=== PATIENT | male | born 1950 | race Caucasian/White ===

== ENCOUNTER → 2016-12-15 | Outpatient (CLI) | payer MEDICARE, OTHER ==
--- NOTE | 2016-12-15 14:58 | REP ---
Clinical: Cough. Comparison: None. Technique: PA and lateral. Findings: Mediastinum and cardiac silhouette are normal. Lung dominguez demonstrate chronic-appearing changes. No obvious acute consolidation, effusion, or pneumothorax. Skeletal structures demonstrate age-related osteopenia and degenerative change. Impression: Chronic-appearing changes. No obvious acute cardiopulmonary process. If the patient remains symptomatic consider chest CT for further investigation. Signed by Fredy Alex MD 12/15/2016 11:00 A
== END ==
LOC: M WUC 10:46
PROVIDERS: ATTEND Nurse Practitioner Family
DX: R05 Cough (principal)

== ENCOUNTER → 2018-01-30 | Outpatient (REF) | payer MEDICARE, OTHER ==
[2018-01-30 13:04] LABS: TESTOSTERONE 386 NG/DL (241-827)
== END ==
LOC: M LAB REF 12:28
DX: R68.82 Decreased libido (principal)
CPT/HCPCS: 84403

== ENCOUNTER → 2018-08-30 | Outpatient (CLI) | payer MEDICARE, OTHER | LOC: M WUC 15:10 | DX: M85.88 Other specified disorders of bone density and structure, other site (principal); R06.02 Shortness of breath; R05 Cough | CPT/HCPCS: 71046 ==

== ENCOUNTER → 2018-10-20 | Outpatient (CLI) | payer MEDICARE, OTHER ==
[~2018-10-20] MED LIST: AZEL1SPR3 NARES; CETI10TA PO; FLUTISP; LEVO50TA5 PO; MONT10TA2 PO; SYMB80INH INH; VENTAER INH
[2018-10-20 13:10] LABS: BLOOD UREA NITROGEN 27 MG/DL (7-18); CALCIUM LEVEL 8.8 MG/DL (8.8-10.2); CARBON DIOXIDE LEVEL 32 MEQ/L (21-32); CHLORIDE LEVEL 102 MEQ/L (98-107); CREATININE FOR GFR 0.99 MG/DL (0.70-1.30); GLOMERULAR FILTRATION RATE > 60.0 (>49); GLUCOSE, FASTING 77 MG/DL (70-100); POTASSIUM SERUM 4.4 MEQ/L (3.5-5.1); SODIUM LEVEL 138 MEQ/L (136-145)
== END ==
LOC: M SMT 10:02
PROVIDERS: ATTEND Nurse Practitioner Family
DX: N28.1 Cyst of kidney, acquired (principal)
CPT/HCPCS: 36415; 80048; G0463

== ENCOUNTER → 2018-10-25 | Outpatient (CLI) | payer MEDICARE, OTHER ==
[~2018-10-25] MED LIST changes: -AZEL1SPR3 NARES; -CETI10TA PO; -FLUTISP; +ISOVUE-370 76% 100ML VIAL (Q9967) As Ordered ONE; -LEVO50TA5 PO; -MONT10TA2 PO; -SYMB80INH INH; -VENTAER INH
--- NOTE | 2018-10-25 19:31 | REP ---
CT abdomen without and with IV contrast: History: Renal cyst. Comparison CT study of the chest is from September 08, 2018. Comparison sonography of the kidneys September 27, 2018. CT contrast dose: 100 ml of intravenous Isovue 370. CT findings: Preliminary linoleum floor installer radiograph is unremarkable. The lung bases are clear on axial CT images. There is no evidence of pleural effusion or upper abdominal ascites. The liver and the spleen are normal in size homogeneous in texture. No adrenal lesion is seen. Pancreas shows no abnormality. No abnormalities seen in the gallbladder. No retroperitoneal mass or adenopathy is seen. Vascular calcification is noted. There are two intrarenal calculi in the left kidney, each at the level of the cortical medullary junction. The calculus at the upper pole measures 1.0 cm in greatest diameter. There is a 3 mm calculus at the lower pole left kidney. No left-sided hydronephrosis is seen. No right-sided intrarenal calculi. Adjacent to the larger calculus in the upper pole of the left kidney posteriorly, there is a nonenhancing simple cyst 2.3 cm in greatest diameter. There is some focal cortical scarring higher up in the upper pole cortex. No abnormal enhancement is seen. No mass lesion is observed. No vascular abnormality is seen. Delayed acquisition images show no filling defect in the collecting system on either side. Impression: Simple cyst upper pole left kidney 2.3 cm in greatest diameter. Adjacent to this there is an intrarenal stone 1 cm in diameter. There is also a 0.4 cm calculus in the lower pole of the left kidney. Electronically Signed by Krunal Young MD 10/25/2018 07:35 P
== END ==
LOC: M RAD 14:51
PROVIDERS: ATTEND Nurse Practitioner Family
DX: N28.1 Cyst of kidney, acquired (principal); N20.0 Calculus of kidney
CPT/HCPCS: 74170; Q9967

== ENCOUNTER → 2018-11-10 | Outpatient (CLI) | payer MEDICARE, OTHER ==
[~2018-11-10] MED LIST changes: +AZEL1SPR3 NARES; +CETI10TA PO; +FLUTISP; -ISOVUE-370 76% 100ML VIAL (Q9967) As Ordered ONE; +LEVO50TA5 PO; +MONT10TA2 PO; +SYMB80INH INH; +VENTAER INH
[2018-11-10 14:18] LABS: HEMOGLOBIN 15.7 g/dl (13.5-17.5); MEAN CORPUSCULAR HEMOGLOBIN 30.8 pg (27.0-33.0); MEAN CORPUSCULAR HGB CONC 32.7 g/dl (32.0-36.5); MEAN CORPUSCULAR VOLUME 94.3 fl (80.0-96.0); PLATELET COUNT, AUTOMATED 257 10^3/uL (150-450); RED BLOOD COUNT 5.09 10^6/uL (4.30-6.10); WHITE BLOOD COUNT 5.9 10^3/uL (4.0-10.0)
[2018-11-10 14:37] LABS: INR 0.96; PROTHROMBIN TIME 12.9 SECONDS (12.1-14.4)
[2018-11-10 14:38] LABS: PARTIAL THROMBOPLASTIN TIME 30.6 SECONDS (25.4-37.6)
[2018-11-10 14:39] LABS: BLOOD UREA NITROGEN 25 MG/DL (7-18); CALCIUM LEVEL 9.2 MG/DL (8.8-10.2); CARBON DIOXIDE LEVEL 31 MEQ/L (21-32); CHLORIDE LEVEL 105 MEQ/L (98-107); CREATININE FOR GFR 1.05 MG/DL (0.70-1.30); GLOMERULAR FILTRATION RATE > 60.0 (>49); GLUCOSE, FASTING 100 MG/DL (70-100); POTASSIUM SERUM 4.8 MEQ/L (3.5-5.1); SODIUM LEVEL 140 MEQ/L (136-145)
== END ==
LOC: M SMT 09:40
PROVIDERS: ATTEND Nurse Practitioner Family
DX: N20.0 Calculus of kidney (principal); Z79.01 Long term (current) use of anticoagulants

== ENCOUNTER 2018-11-30 07:44 | Day surgery (SDC) | payer MEDICARE, OTHER ==
[~2018-11-30] VITALS: Ht 170.2 cm; Wt 59.6 kg
[~2018-11-30 07:44] MED LIST changes: +LORA10CA PO; +LR 1,000 ML IV ONE; +PROPOFOL 500 MG/50 ML VIAL As Ordered ONE; +VITA100066 PO
[2018-11-30] MEDS ORDERED: LIDOCAINE 2% INJ 100 MG/5 ML SDV (FOR ANES.) As Ordered ONE (07:58)
--- NOTE | 2018-11-30 08:25 | REP ---
Supine abdomen for renal calculi: Comparison is the abdomen CT of 10/25/2018. There is a calcification superimposed over the mid pole of the left kidney measuring 7 mm on plain films. This measured 1 cm on the comparison CT. On the comparison CT there was a 3 mm calculus at the lower pole left kidney. This is not visible on the plain film study today. Half There is a linear calcification measuring 10 mm length by 3 mm transversely just inferior to the L3 transverse process, possibly a left ureteral calculus. This was not present on the comparison CT. There is a calcification in the pelvis inferolaterally on the right and a calcification in the pelvis on the left. These could be phleboliths or ureteral calculi. The pelvis is not included on the comparison CT. The bowel gas pattern is normal. Skeletal structures and soft tissues are otherwise unremarkable. There is partial sacralization of L5 on the right. Electronically Signed by Colby Louise MD 11/30/2018 08:16 A
[2018-11-30 12:30] VITALS: BP 122/75
--- NOTE | 2018-12-01 09:43 | RO ---
DATE OF PROCEDURE: 11/30/2018 PREPROCEDURE DIAGNOSIS: Left kidney stone. POSTPROCEDURE DIAGNOSIS: Left kidney stone. PROCEDURE: Left extracorporeal shock wave lithotripsy. SURGEON: Catrachito Reyes MD MID LEVEL CLINICIAN: None ANESTHESIA: Monitored anesthesia care (MAC). OPERATIVE INDICATIONS: This is a 68-year-old male who was found to have approximately a 1 cm nonobstructing left kidney stone. He was brought to the operating room today. DESCRIPTION OF PROCEDURE: The patient was brought to the operating room and MAC anesthesia was administered. Prophylactic antibiotics were infused. He was then placed in the supine position in preparation first for left-sided extracorporeal shock wave lithotripsy. Fluoroscopy was utilized to monitor stone position and fragmentation throughout the procedure. Shock waves were then delivered to the left-sided kidney stone ungated. There were no arrhythmias. After 2500 shocks, the procedure was concluded. The stone appeared to fragment well. The patient was then awakened from anesthesia and transported to recovery room in stable condition. ESTIMATED BLOOD LOSS: 0 mL. COMPLICATIONS: None. SPECIMENS: None. PLAN: The patient will followup in the clinic in a few weeks with imaging prior to assess for residual stone burden. NOEL
== END 2018-11-30 12:43 | disposition home or self-care (01) ==
LOC: M SDC 07:44
PROVIDERS: ATTEND Urology
DX: N20.0 Calculus of kidney (principal); E05.90 Thyrotoxicosis, unspecified without thyrotoxic crisis or storm; J44.9 Chronic obstructive pulmonary disease, unspecified; Z87.891 Personal history of nicotine dependence; Z79.51 Long term (current) use of inhaled steroids; Z79.899 Other long term (current) drug therapy
CPT/HCPCS: 50590; 74018; J0690

== ENCOUNTER → 2018-12-26 | Outpatient (CLI) | payer MEDICARE, OTHER ==
[~2018-12-26] MED LIST changes: -LR 1,000 ML IV ONE; -PROPOFOL 500 MG/50 ML VIAL As Ordered ONE
--- NOTE | 2018-12-26 09:32 | REP ---
Supine abdomen single AP view for renal calculi: Comparison is 11/30/1929. There is a 7 mm calculus superimposed over the mid pole of the left kidney, unchanged. There is a linear calcification superimposed over the left transverse process of the L3 vertebra measuring 14 x 4 mm, similar to the comparison study. There are bilateral pelvic calcifications, also unchanged. The bowel gas pattern is normal. 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 Skeletal structures are otherwise unremarkable. Impression: No interval change. Electronically Signed by Colby Louise MD 12/26/2018 09:23 A
== END ==
LOC: M SMT 08:55
PROVIDERS: ATTEND Nurse Practitioner Family
DX: N20.0 Calculus of kidney (principal)

== ENCOUNTER → 2019-01-25 | Outpatient (REF) | payer MEDICARE, OTHER | LOC: M LAB REF 12:37 | PROVIDERS: ATTEND Internal Medicine | DX: J44.9 Chronic obstructive pulmonary disease, unspecified (principal) ==

== ENCOUNTER → 2019-06-25 | Outpatient (CLI) | payer MEDICARE, OTHER ==
--- NOTE | 2019-06-25 11:11 | REP ---
Supine abdomen for renal calculi: Comparison is 12/26/2018. There is a linear calcification projected over the L3 left transverse process, unchanged. There is a calcification projected over the upper pole of the left kidney, unchanged. There are calcifications in the pelvis bilaterally, unchanged. The bowel gas pattern is normal. The skeletal structures are unchanged. Impression: No change in the calcifications on the left. Electronically Signed by Colby Louise MD 06/25/2019 11:02 A
== END ==
LOC: M SMT 08:51
PROVIDERS: ATTEND Nurse Practitioner Family
DX: N20.0 Calculus of kidney (principal)
CPT/HCPCS: 74018; G0463

== ENCOUNTER → 2020-01-24 | Outpatient (REF) | payer MEDICARE, OTHER ==
[~2020-01-24] MED LIST changes: -MONT10TA2 PO; +MONT10TA4 PO
== END ==
LOC: M LAB REF 12:05
PROVIDERS: ATTEND Internal Medicine
DX: N52.9 Male erectile dysfunction, unspecified (principal)

== ENCOUNTER → 2021-04-22 | Outpatient (CLI) | payer MEDICARE, OTHER ==
[~2021-04-22] MED LIST changes: +CLAR10CA3 PO; +D31000TA2 PO; +MONT10TA10 PO; -MONT10TA4 PO; +SYMB16INH
== END ==
LOC: M LABSMTC 11:05
PROVIDERS: ATTEND Anesthesiology
DX: Z01.812 Encounter for preprocedural laboratory examination (principal); Z20.822 Contact with and (suspected) exposure to COVID-19

== ENCOUNTER → 2021-07-22 | Outpatient (CLI) | payer MEDICARE, OTHER | LOC: M LABSMTC 09:19 | PROVIDERS: ATTEND Anesthesiology | DX: Z11.52 Encounter for screening for COVID-19 (principal) ==

== ENCOUNTER 2021-07-27 07:02 | Day surgery (SDC) | payer MEDICARE, OTHER ==
[~2021-07-27] VITALS: Ht 170.2 cm; Wt 58.1 kg
[~2021-07-27 07:02] MED LIST changes: +NS 1,000 ML IV ONE
--- OUTSIDE RECORDS SUMMARY | 2021-07-27 07:07 | CCD | Continuity of Care Document ---
Author Author Marco SIDDIQUI MD Organization Unknown Address [address] [place] [address] Phone [phone] Care Team Providers Care Education Dean Name Role Phone Joy Haile AUTM [phone] Killian Self MD @ [facility] AUTM [phone] Problems Description No Information Available Social History Type Date Description Comments Sex Unknown Tobacco Use Start: Unknown End: Unknown Patient is a former smoker 1 pack per day x 16 years Smoking Status Reviewed: 07/21/21 Patient is a former smoker 1 pack per day x 16 years Allergies and adverse reactions Description No Known Drug Allergies Medications Active Medications SIG Qnty Indications Ordering Provide r Date Incruse Ellipta 62.5mcg/Inh Aeroso l 1 puff every day 90units Tom Siddiqui MD 07/21/2021 Prednisone 10mg Tablets 40mg po qd x 4 days then 30mg qd x 4 days then 20mg qd x 4 days then 10mg qd x 4 days and stop 40tabs Tom Siddiqui MD 07/21/2021 Cefuroxime Axetil 500mg Tablets 1 by mouth twice a day 20tabs Tom Siddiqui MD 07/21/2021 Albuterol Sulfate (2 .5mg/3ML) 0.083% Nebulizer 1 vial four times a day as needed via nebulizer 540ml Larissa uQinn, N.P. 04/22/2021 Symbicort 160-4.5mcg/Act Aerosol 2 puff twice a day 10.200gm Tom Siddiqui MD 06/25/2020 Levothyroxine Sodium 50mcg Tablets take 1 tab by mouth daily. Unknown Loratadine 10mg Tablets 1 by mouth every day Unknown Azelastine HCL (Nasal) 0.1% Soluti on 1-2 sprays each nostril every 12 hours as needed Unk nown Fluticasone Propionate 50mcg/Act Suspension 2 sprays to each nostril daily Unknown Ventolin HFA 108(90Base) mcg/Act A erosol 2 puffs qid/prn Unknown Vitamin D 1 tab by mouth every day Unknown Montelukast Sodium 10mg Tablets 1 by mouth every day Unknown History Medications Prednisone 10mg Tablets 40mg po qd x 4 days then 30mg qd x 4 days then 20mg qd x 4 days then 10mg qd x 4 days and stop 40tabs Larissa Quinn, N.P. 04/22/2021 - 021 Medications Administered in Office Medication SIG Qnty Indications Ordering Provider Date Covid-19 vaccine, Unspecified Inj ection Unknown 12/03/2020 Covid-19 vaccine, Unspecified Inj ection Unknown 10/30/2020 Immunizations Description No Information Available Vital Signs Date Vital Result Comment 07/21/2021 8:27am BP Systolic 122 mmHg BP Diastolic 78 mmHg Heart Rate 89 /min O2 % BldC Oximetry 97 % Respiratory Rate 18 /min Height 67 inches 5'7" Weight 130.00 lb BMI (Body Mass Index) 20.4 kg/m2 Superior Body Weight 148 lb Weight 58.968 kg BSA (Body Surface Area) 1.68 m2 04/22/2021 8:37am BP Systolic 124 mmHg BP Diastolic 78 mmHg Heart Rate 73 /min O2 % BldC Oximetry 97 % Room Air Height 67 inches 5'7" Weight 124.00 lb BMI (Body Mass Index) 19.4 kg/m2 Superior Body Weight 148 lb Weight 56.246 kg BSA (Body Surface Area) 1.65 m2 Results Test Acquired Date Facility Test Result H/L Range Note FVL/Alvin 07/21/2021 [facility] SEE IMAGE FVC-Pred 3.86 L FVC-Pre 1.96 L FVC-%Pred-Pre 50 L FVC-LLN 3.00 L Fev1-Pred 2.81 L Fev1-Pre 0.81 L Fev1-%Pred-Pre 28 L Fev1-LLN 2.08 L Fev6-Pred 3.62 L Fev6-Pre 1.76 L Fev6-%Pred-Pre 48 L Fev6-LLN 2.78 L Kvk0tea-Xzff 73 % Opl2jft-Skv 41 % Ybe9lhp-%Pred-Pre 56 % Sth8aax-HRQ 63 % Jtn3pve-Empz 94 % Adx1fym-Knf 90 % Vnk6ale-%Pred-Pre 95 % FEFMax-Pred 7.49 L/E/sec FEFMax-Pre 3.10 L/E/sec FEFMax-%Pred-Pre 41 L/E/sec FEFMax-LLN 5.36 L/E/sec Vuz3277-Mogp 2.10 L/E/sec Ahf1081-Kbt 0.29 L/E/sec Cvm9875-%Pred-Pre 13 L/E/sec Gav9937-RCO 0.63 L/E/sec ExpTime-Pre 7.95 sec Wic8xbe9-Fbck 77 % Vey8ows2-Pod 46 % Iim1cyt9-%Pred-Pre 59 % Xfs8fja1-BEK 68 % Procedures Date Code Description Status 04/22/2021 77493 Office/Outpatient Established Mo d MDM 30-39 Min Completed 04/22/2021 68475 Spirometry Completed Medical Devices Description No Information Available Encounters Type Date Location Provider Dx Diagnosis Office Visit 04/22/2021 8:45a [facility] Sam Quinn, N.P. J47.9 Bronchiectasis, uncomplicated J43.9 Emphysema, unspecified Z87.891 Personal history of nicotine dependence R91.8 Other nonspecific abnormal f inding of lung field Assessments Date Code Description Provider 07/21/2021 J44.9 Chronic obstructive pulmonary di sease, unspecified Tom Siddiqui MD 07/21/2021 J43.9 Emphysema, unspecified Tom Siddiqui MD 07/21/2021 J47.9 Bronchiectasis, uncomplicated La thompson Siddiqui MD 07/21/2021 R91.8 Other nonspecific abnormal findi ng of lung field Tom Siddiqui MD 07/21/2021 Z87.891 Personal history of nicotine dep endence Tom Siddiqui MD 04/22/2021 J47.9 Bronchiectasis, uncomplicated Ko lb, Larissa, N.P. 04/22/2021 J43.9 Emphysema, unspecified Cheyenne, Porsha lsea, N.P. 04/22/2021 Z87.891 Personal history of nicotine dep endence Larissa Quinn, N.P. 04/22/2021 R91.8 Other nonspecific abnormal findi ng of lung field Larissa Quinn, N.P. Plan of Treatment Future Appointment(s):* 11/20/2021 8:30 am - Tom Siddiqui MD at [facility] * 08/06/2021 9:15 am - Larissa Quinn, N.P. at [facility] 07/21/2021 - Tom Siddiqui MD* J44.9 Chronic obstructive pulmonary disease, unspecified * J43.9 Emphysema, unspecified * J47.9 Bronchiectasis, uncomplicated * R91.8 Other nonspecific abnormal finding of lung field * Z87.891 Personal history of nicotine dependence * * New Labs:* FVL/Alvin, Ordered: 07/21/21 * FVL/Alvin, Ordered: 07/21/21 * Follow up:* 2-3 weeks with fvl...recheck...me or it project lead CT Dec will call results 4 months with fvl Functional Status Description No Information Available Mental Status Description No Information Available Referrals Description No Information Available
--- OUTSIDE RECORDS SUMMARY | 2021-07-27 07:07 | CCD | Continuity of Care Document ---
Author Author Marco SIDDIQUI MD Organization Unknown Address [address] [place] [address] Phone [phone] Care Team Providers Care Endo Tech Name Role Phone Joy Haile AUTM [phone] Killian Self MD @ [facility] AUTM [phone] Problems Description No Information Available Social History [...] day as needed via nebulizer 540ml Larissa Quinn, N.P. 04/22/2021 Symbicort 160-4.5mcg/Act Aerosol 2 puff [...] qd x 4 days and stop 40tabs Larisas Quinn, N.P. 04/22/2021 - 021 Medications Administered [...] lb BMI (Body Mass Index) 20.4 kg/m2 Leonardo Body Weight 148 lb Weight 58.968 kg BSA (Body Surface Area) 1.68 m2 04/22/2021 8:37am BP Systolic 124 mmHg BP Diastolic 78 mmHg Heart Rate 73 /min O2 % BldC Oximetry 97 % Room Air Height 67 inches 5'7" Weight 124.00 lb BMI (Body Mass Index) 19.4 kg/m2 Leonardo Body Weight 148 lb Weight 56.246 kg [...] L Fev6-%Pred-Pre 48 L Fev6-LLN 2.78 L Vra4jyy-Unjh 73 % Cko4ien-Kzu 41 % Jxl0rqb-%Pred-Pre 56 % Twn5cix-ZJE 63 % Bbt4nyp-Osmz 94 % Jcy1lus-Cat 90 % Eqb3xxz-%Pred-Pre 95 % FEFMax-Pred 7.49 L/E/sec FEFMax-Pre 3.10 L/E/sec FEFMax-%Pred-Pre 41 L/E/sec FEFMax-LLN 5.36 L/E/sec Rsk3784-Gqch 2.10 L/E/sec Tom1527-Qgq 0.29 L/E/sec Swu7407-%Pred-Pre 13 L/E/sec Rbp7831-YYX 0.63 L/E/sec ExpTime-Pre 7.95 sec Tzy6llc9-Dvbu 77 % Bpm6gqs9-Qvj 46 % Pzd3rjh6-%Pred-Pre 59 % Btz7scx0-NZT 68 % Procedures Date Code Description Status 07/21/2021 03890 Office/Outpatient Established Mo d MDM 30-39 Min Completed 07/21/2021 19773 Inhaler Teaching Completed 07/21/2021 48219 Spirometry Completed 04/22/2021 90429 Office/Outpatient Established Mo d MDM 30-39 Min Completed 04/22/2021 94132 Spirometry Completed Medical Devices Description No Information Available Encounters Type Date Location Provider Dx Diagnosis Office Visit 07/21/2021 8:30a [facility] Myriam Siddiqui MD J43.9 Emphysema, unspecified J47.9 Bronchiectasis, uncomplicate d R91.8 Other nonspecific abnormal f inding of lung field Z87.891 Personal history of nicotine dependence Office Visit 04/22/2021 8:45a [facility] Sam Quinn, N.P. J47.9 Bronchiectasis, uncomplicated J43.9 Emphysema, unspecified Z87.891 Personal history of nicotine dependence R91.8 Other nonspecific abnormal f inding of lung field Assessments Date Code Description Provider 07/21/2021 J43.9 Emphysema, unspecified Tom Siddiqui MD 07/21/2021 J47.9 Bronchiectasis, uncomplicated La thompsno Siddiqui MD 07/21/2021 R91.8 Other nonspecific abnormal [...] 8:30 am - Tom Siddiqui MD at [facility] * 08/06/2021 9:15 am - Larissa Quinn, N.P. at [facility] 07/21/2021 - Tom Siddiqui MD* J43.9 Emphysema, unspecified * J47.9 Bronchiectasis, uncomplicated * R91.8 Other nonspecific abnormal finding of lung field * Z87.891 Personal history of nicotine dependence * * Comments:* ~ At this point, he clearly has an exacerbation, and will be treated with a prednisone taper, as well as some cefuroxime. It is unfortunate if this adversely affects the scheduling of his colonoscopy but, certainly, given the client's flow rates and volumes with his increased symptoms, he actually warrants intervention.~ We will also add an anticholinergic to his regimen. It appears as though Incruse is covered by his insurance. He is instructed on the use of the device, and a script was electronically sent to his pharmacy.~ He will be due for a CT scan in August, and I will make those arrangements.~ Given his change in status, I have asked him to return in several weeks for a recheck, to make sure he is r esponding nicely to interventions. Routinely he should be seen in a minimum of 4 months, and I will make arrangements for all that, including his CT scan, which we will call him the results of. He can, certainly, call sooner if problems arise in the interim. We await his return. * Follow up:* 2-3 weeks with fvl...recheck...me or snake charmer CT Aug will call results 4 months with fvl Functional Status Description No Information Available Mental Status Description No Information Available Referrals Description No Information Available
--- OUTSIDE RECORDS SUMMARY | 2021-07-27 07:08 | CCD | Continuity of Care Document ---
Author Author Nurse Marco Rodriguez Organization Unknown Address [address] [facility] [address] [place] [address] Phone [phone] Care Team Providers Care Mental Health Therapist Name Role Phone Татьяна Olivas DO AUTM Unavailable Killian Self JR, MD AUTM Unavailable [facility] AUTM [phone] Tom Siddiqui MD AUTM [phone] Galo Solo MD AUTM [phone] Problems Active Problems Provider Date Screening for malignant neoplasm of prostate Татьяна Gant D.O. Onset: 01/21/2012 Hearing loss Татьяна Olivas D.O. Onset: 2011 Social History Type Date Description Comments Sex Unknown Tobacco Use Start: Unknown End: Unknown Former Cigarette Smo ker 1 Pack Daily smoked off and on for about 10 years. He smoked 3/4 of a pack of cigarettes daily, but quit at the age of 34 ETOH Use Occasionally consumes beer Tobacco Use Start: Unknown End: Unknown Patient is a former smoker Allergies and adverse reactions Description No Known Drug Allergies Medications Active Medications SIG Qnty Indications Ordering Provide r Date Montelukast Sodium 10mg Tablets one before bedtime daily 90tabs Killian Self MD 08/30/2018 Vitamin D3 1000Unit Capsules 1 by mouth every day RIGO Diana 01/02/2018 Levothyroxine Sodium 50mcg Tablets take one tablet by mouth every day 90tabs E03.9 Killian Self MD 12/02/2016 Ventolin HFA 108(90Base) mcg/Act A erosol 2 puffs four times a day as needed 18gm J06.9 Killian collins MD 08/06/2016 Azelastine HCL (Nasal) 0.1% Soluti on spray 2 sprays in each nostril in the morning and 4 hours before bedtime 30ml Killian Self MD 12/15/2015 Fluticasone Propionate 50mcg/Act Suspension 2 sprays each nostril daily 16gm 461.9 Killian ba MD 01/30/2015 Symbicort 160-4.5mcg/Act Aerosol 2 puff twice a day Unknown Medications Administered in Office Medication SIG Qnty Indications Ordering Provider Date Covid-19 vaccine, Unspecified Inj ection Unknown 12/03/2020 Covid-19 vaccine, Unspecified Inj ection Unknown 10/30/2020 Administration Of Flu Vaccine Inj ection Killian Self MD 08/08/2019 Administration Of Flu Vaccine Inj ection Killian Self MD 08/03/2018 Administration Of Flu Vaccine Inj ection Killian Self MD 08/04/2017 Administration Of Flu Vaccine Inj ection Татьяна Olivas D.O. 07/28 Administration Of Flu Vaccine Inj ection RIGO Soares 07/10/2015 Immunizations CPT Code Status Date Vaccine Lot # U-Flu Given 07/16/2020 Influenza,Unspecified 65092 Given 08/08/2019 Influenza Vaccin e Quadrivalent Preser/Antibiotic Free Im Use [id number] 60661 Given 08/03/2018 Influenza Virus Vaccine, Quadrivalent (Cciiv4), Derived From 2 Given 08/04/2017 Influenza Vaccin e Quadrivalent Preser/Antibiotic Free Im Use [id number] Q2037 Given 07/28/2016 Fluvirin Virus Vaccine 27482 01 42270 Given 02/09/2016 Prevnar 13 Q2037 Given 07/10/2015 Fluvirin Virus Vaccine 16575 01 56512 Given 01/28/2014 Pneumovax 23 [id number] Q2037 Given 08/14/2013 Fluvirin Virus Vaccine 33636 01 Q2037 Given 08/08/2012 Fluvirin Virus Vaccine 94045 01 U-Td Refused 01/27/2021 Td(Adult)(Tetanus, Diphtheri a) unspecified Vital Signs Date Vital Result Comment 01/27/2021 7:54am BP Systolic 128 mmHg BP Diastolic 70 mmHg Heart Rate 72 /min Height 67 inches 5'7" Weight 126.25 lb O2 % BldC Oximetry 95 % RM Air BMI (Body Mass Index) 19.8 kg/m2 08/06/2020 7:55am BP Systolic 110 mmHg BP Diastolic 62 mmHg Heart Rate 68 /min Height 67 inches 5'7" Weight 126.00 lb BMI (Body Mass Index) 19.7 kg/m2 Results Test Acquired Date Facility Test Result H/L Range Note Complete Blood Count 01/26/2021 [facility] Equipment Operator/Laborer: [place] Kill[place] [address] [phone] WBC 6.8 x10*3/UL 4.1 - 10.9 RBC 4.99 x10*6/UL 4.20 - 6.30 Hemoglobin 14.8 g/dL 12.0 - 18.0 Hematocrit 44.5 % 37.0 - 51.0 MCV 89.0 fL 80.0 - 97.0 MCH 29.6 pg 26.0 - 32.0 MCHC 33.2 g/dL 31.0 - 38.0 RDW 13.5 % 11.6 - 13.7 PLT 292 x10*3/UL 140 - 440 MPV 8.3 FL 7.8 - 11.0 Lymph % 19.6 % 10.0 - 58.5 Mid % 5.8 % 1.7 - 9.3 Neut % 74.6 % 37.0 - 92.0 Lymph # 1.3 x10*3/UL 0.6 - 4.1 Mid # 0.4 x10*3/UL 0.1 - 0.6 Neut # 5.1 x10*3/UL 2.0 - 7.8 Comprehensive Chem Profile 01/26/2021 [facility] Equipment Operator/Laborer: [place] Kill[place] [address] [phone] Glucose 88 mg/dL 74 - 99 1 BUN 18 mg/dL 7 - 18 Creatinine 1.2 mg/dL 0.6 - 1.3 Sodium 141 mEq/L 136 - 145 Potassium 4.5 mEq/L 3.5 - 5.1 Chloride 103 mEq/L 98 - 107 Carbon Dioxide 32 mEq/L 21 - 32 Calcium 9.3 mg/dL 8.5 - 10.1 Alk. Phosphatase 55 mg/dL 46 - 116 Total Bilirubin 0.7 mg/dL 0.2 - 1.0 Ast (Sgot) 22 U/L 15 - 37 Alt (SGPT) 28 U/L 12 - 78 Albumin 4.0 g/dL 3.4 - 5.0 Total Protein 7.3 g/dL 6.4 - 8.2 A/G Ratio 1.21 CALC 1.00 - 1.90 GFR 60 mL/min Low >60 GFR >= 60 mL/min >60 2 Lipid Profile 01/26/2021 [facility] Equipment Operator/Laborer: [place] Kill[place] [address] [phone] Cholesterol 230 mg/dL High 131 - 200 Triglycerides 62 mg/dL 30 - 150 HDL Cholesterol 72 mg/dL High 35 - 60 LDL (Calculated) 146 CALC 50 - 159 Laboratory test finding 01/26/2021 [facility] Equipment Operator/Laborer: [place] Kill[place] [address] [phone] Thyroid Stimulating Hormone 3.30 uIU/mL 0.3 6 - 3.74 1 100-125 mg/dL PRE-DIABET ES/FASTING >126 mg/dL DIABETES/FASTING 2 CHRONIC KIDNEY DISEASE STAGI NG PER NKF STAGE I & II GFR >= 60 NORMAL TO MILDLY DECREASED STAGE III GFR 30-59 MODERATELY DECREASED STAGE IV GFR 15-29 SEVERELY DECREASED STAGE V GFR <15 VERY LITTLE GFR LEFT ESRD GFR <15 ON PACKAGING DESIGN ENGINEER Procedures Date Code Description Status 04/08/2021 10184 Chronic Care MGMT 20 Mins Clinical Staff Time Per Calendar Month Completed 02/13/2021 85348 Chronic Care MGMT 20 Mins Clinical Staff Time Per Calendar Month Completed 01/27/2021 11992 Office/Outpatient Established Mo d MDM 30-39 Min Completed 01/27/2021 70950 EKG/Interpretation & Report Comp leted 01/06/2021 57214 Chronic Care MGMT 20 Mins Clinical Staff Time Per Calendar Month Completed 04/09/2011 [id number] Colonoscopy Completed Medical Devices Description No Information Available Encounters Type Date Location Provider Dx Diagnosis Office Visit 01/27/2021 8:20a [facility] Killian Self MD E03.9 Hypothyroidism, unspecified J44.9 Chronic obstructive pulmonar y disease, unspecified J47.9 Bronchiectasis, uncomplicate d E78.00 Pure hypercholesterolemia, u nspecified N20.0 Calculus of kidney R94.31 Abnormal electrocardiogram [ ECG] [EKG] Z13.89 Encounter for screening for other disorder Assessments Date Code Description Provider 04/08/2021 E03.9 Hypothyroidism, unspecified Bonilla gerry Self MD 04/08/2021 J44.9 Chronic obstructive pulmonary di sease, unspecified Killian Self MD 04/08/2021 E78.00 Pure hypercholesterolemia, unspe cified Killian Self MD 02/13/2021 E03.9 Hypothyroidism, unspecified Bonilla gerry Self MD 02/13/2021 J44.9 Chronic obstructive pulmonary di sease, unspecified Killian Self MD 02/13/2021 E78.00 Pure hypercholesterolemia, unspe cified Killian Self MD 01/27/2021 E03.9 Hypothyroidism, unspecified Bonilla gerry Self MD 01/27/2021 J44.9 Chronic obstructive pulmonary di sease, unspecified Killian Self MD 01/27/2021 J47.9 Bronchiectasis, uncomplicated Co llgerry Self MD 01/27/2021 E78.00 Pure hypercholesterolemia, unspe cifabián Self MD 01/27/2021 N20.0 Calculus of kidney Killian ba MD 01/27/2021 R94.31 Abnormal electrocardiogram [ECG] [EKG] Killian Self MD 01/27/2021 Z13.89 Encounter for screening for othe r disorder Killian Self MD 01/26/2021 E78.00 Pure hypercholesterolemia, unspe cified Killian Self MD 01/26/2021 E78.00 Pure hypercholesterolemia, unspe cified Lab Schedule 01/26/2021 E03.9 Hypothyroidism, unspecified Bonilla gerry Self MD 01/26/2021 E03.9 Hypothyroidism, unspecified Lab Schedule 01/06/2021 E03.9 Hypothyroidism, unspecified Bonilla gerry Self MD 01/06/2021 J44.9 Chronic obstructive pulmonary di sease, unspecified Killian Self MD 01/06/2021 E78.00 Pure hypercholesterolemia, unspe cified Killian Self MD Plan of Treatment Future Appointment(s):* 08/10/2021 8:20 am - Killian Self MD at [facility] 01/25/2020 - Killian Self MD* E03.9 Hypothyroidism, unspecified * J44.9 Chronic obstructive pulmonary disease, unspecified * E78.00 Pure hypercholesterolemia, unspecified * Z13.89 Encounter for screening for other disorder Functional Status Description No Information Available Mental Status Description No Information Available Referrals Refer to Reason for Referral Status Appt Date Galo Solo MD CONSULT FOR SCREENING COLONOSCOPY Amna cagle Notified 03/26/[address] [place] [id number] [phone]
--- OUTSIDE RECORDS SUMMARY | 2021-07-27 07:08 | CCD | Continuity of Care Document ---
Author Author Nurse Marco Rodriguez Organization Unknown Address [address] [facility] [address] [place] [address] Phone [phone] Care Team Providers Care Building Maintenance Worker Name Role Phone Татьяна Olivas DO AUTM Unavailable Killian Self JR, MD AUTM Unavailable [facility] AUTM [phone] Tom Siddiqui MD AUTM [phone] Galo Solo MD AUTM [phone] Problems Active Problems Provider Date Screening for [...] Medication SIG Qnty Indications Ordering Provider Date Administration Of Flu Vaccine Inj ection Killian Self MD 07/03/2021 Covid-19 vaccine, Unspecified Inj ection Unknown 12/03/2020 Covid-19 vaccine, Unspecified Inj ection Unknown 10/30/2020 Administration Of Flu Vaccine Inj maggieion Killian Self MD 08/08/2019 Administration Of Flu Vaccine Inj ection Killian Self MD 08/03/2018 Administration Of Flu Vaccine Inj ection Killian Self MD 08/04/2017 Administration Of Flu Vaccine Inj ection Татьяна Olivas D.O. 07/28 Administration Of Flu Vaccine Inj ection RIGO Soares 07/10/2015 Immunizations CPT Code Status Date Vaccine Lot # [id number] Given 07/03/2021 Influenza Vaccin e Quadrivalent Preser/Antibiotic Free Im Use [id number] U-Flu Given 07/16/2020 Influenza,Unspecified 21168 Given 08/08/2019 Influenza Vaccin e Quadrivalent Preser/Antibiotic Free Im Use [id number] 80225 Given 08/03/2018 Influenza Virus Vaccine, Quadrivalent (Cciiv4), Derived From 4 Given 08/04/2017 Influenza Vaccin e Quadrivalent Preser/Antibiotic Free Im Use [id number] Q2037 Given 07/28/2016 Fluvirin Virus Vaccine 66562 01 02918 Given 02/09/2016 Prevnar 13 Q2037 Given 07/10/2015 Fluvirin Virus Vaccine 78887 01 38851 Given 01/28/2014 Pneumovax 23 [id number] Q2037 Given 08/14/2013 Fluvirin Virus Vaccine 61433 01 Q2037 Given 08/08/2012 Fluvirin Virus Vaccine 06738 01 U-Td Refused 01/27/2021 Td(Adult)(Tetanus, Diphtheri a) [...] H/L Range Note Complete Blood Count 01/26/2021 [facility] Drop Wire Operator: [place] [address] [phone] WBC 6.8 x10*3/UL 4.1 - 10.9 RBC [...] 2.0 - 7.8 Comprehensive Chem Profile 01/26/2021 [facility] Drop Wire Operator: [place] [address] [phone] Glucose 88 mg/dL 74 - 99 1 [...] 60 mL/min >60 2 Lipid Profile 01/26/2021 [facility] Drop Wire Operator: Dr Killian Self [place] [id number] [phone] Cholesterol 230 mg/dL High 131 - 200 Triglycerides 62 mg/dL 30 - 150 HDL Cholesterol 72 mg/dL High 35 - 60 LDL (Calculated) 146 CALC 50 - 159 Laboratory test finding 01/26/2021 [facility] Drop Wire Operator: [place] [address] [phone] Thyroid Stimulating Hormone 3.30 uIU/mL 0.3 6 - 3.74 1 100-125 mg/dL PRE-DIABET ES/FASTING >126 mg/dL DIABETES/FASTING 2 CHRONIC KIDNEY DISEASE STAGI NG PER NKF STAGE I & II GFR >= 60 NORMAL TO MILDLY DECREASED STAGE III GFR 30-59 MODERATELY DECREASED STAGE IV GFR 15-29 SEVERELY DECREASED STAGE V GFR <15 VERY LITTLE GFR LEFT ESRD GFR <15 ON MATERIALS BUYER Procedures Date Code Description Status 05/29/2021 75928 Chronic Care MGMT 20 Mins Clinical Staff Time Per Calendar Month Completed 04/08/2021 73037 Chronic Care MGMT 20 Mins Clinical Staff Time Per Calendar Month Completed 02/13/2021 33695 Chronic Care MGMT 20 Mins Clinical Staff Time Per Calendar Month Completed 01/27/2021 36276 Office/Outpatient Established Mo d MDM 30-39 Min Completed 01/27/2021 20469 EKG/Interpretation & Report Comp leted 04/09/2011 [id number] Colonoscopy Completed Medical Devices Description No Information Available Encounters Type Date Location Provider Dx Diagnosis Office Visit 01/27/2021 8:20a [facility] Killian Self MD E03.9 Hypothyroidism, unspecified J44.9 Chronic obstructive pulmonar y disease, unspecified J47.9 Bronchiectasis, uncomplicate d E78.00 Pure hypercholesterolemia, u nspecified N20.0 Calculus of kidney R94.31 Abnormal electrocardiogram [ ECG] [EKG] Z13.89 Encounter for screening for other disorder Assessments Date Code Description Provider 07/03/2021 Z23 Encounter for immunization Colli radha Self MD 07/03/2021 Z23 Encounter for immunization Nurse Schedule 05/29/2021 E03.9 Hypothyroidism, unspecified Bonilla gerry Self MD 05/29/2021 J44.9 Chronic obstructive pulmonary di sease, unspecified Killian Self MD 05/29/2021 E78.00 Pure hypercholesterolemia, unspe cified Killian Self MD 04/08/2021 E03.9 Hypothyroidism, unspecified Bonilla gerry Self MD 04/08/2021 J44.9 Chronic obstructive pulmonary di sease, unspecified Killian Self MD 04/08/2021 E78.00 Pure hypercholesterolemia, unspe cified Killian Self MD 02/13/2021 E03.9 Hypothyroidism, unspecified Bonilla gerry Self MD 02/13/2021 J44.9 Chronic obstructive pulmonary di sease, unspecified Killian Self MD 02/13/2021 E78.00 Pure hypercholesterolemia, unspe cified Klilian Self MD 01/27/2021 E03.9 Hypothyroidism, unspecified Bonilla gerry Self MD 01/27/2021 J44.9 Chronic obstructive pulmonary di sease, unspecified Killian Self MD 01/27/2021 J47.9 Bronchiectasis, uncomplicated Co llgerry Self MD 01/27/2021 E78.00 Pure hypercholesterolemia, unspe cified Killian Self MD 01/27/2021 N20.0 Calculus of kidney Killian ba MD 01/27/2021 R94.31 Abnormal electrocardiogram [ECG] [EKG] Killian Self MD 01/27/2021 Z13.89 Encounter for screening for othe r disorder Killian Self MD 01/26/2021 E78.00 Pure hypercholesterolemia, unspe cified Killian Self MD 01/26/2021 E78.00 Pure hypercholesterolemia, unspe cified Lab Schedule 01/26/2021 E03.9 Hypothyroidism, unspecified Bonilla gerry Self MD 01/26/2021 E03.9 Hypothyroidism, unspecified Lab Schedule Plan of Treatment Future Appointment(s):* 08/10/2021 8:20 am - Killian Self [facility] at [facility] 01/25/2020 - Killian Self MD* E03.9 Hypothyroidism, unspecified * J44.9 Chronic obstructive pulmonary disease, unspecified * E78.00 Pure hypercholesterolemia, unspecified * Z13.89 Encounter for screening for other disorder Functional Status Description No Information Available Mental Status Description No Information Available Referrals Refer to Dr Reason for Referral Status Appt Date Galo Solo MD CONSULT FOR SCREENING COLONOSCOPY Amna t Notified 03/26/2021 [address] [facility] [id number] [phone]
--- OUTSIDE RECORDS SUMMARY | 2021-07-27 07:08 | CCD ---
Author Author [facility] Organization [facility] Address Unknown Phone Unavailable Care Team Providers Care Clay Structure Builder And Servicer Name Role Phone Antwon Solo MD Unavailable Unavailable Antwon Solo MD Unavailable Unavailable Antwon Solo MD Unavailable Unavailable Antwon Solo MD Unavailable Unavailable Atnwon Solo MD Unavailable Unavailable Antwon Solo MD Unavailable Unavailable Antwon Solo MD Unavailable Unavailable Antwon Solo MD Unavailable Unavailable Antwon Solo MD Unavailable Unavailable Antwon Solo MD Unavailable Unavailable Antwon Solo MD Unavailable Unavailable Antwon Solo MD Unavailable Unavailable Antwon Solo MD Unavailable Unavailable Antwon Solo MD Unavailable Unavailable Antwon Solo MD Unavailable Unavailable Antwon Solo MD Unavailable Unavailable Antwon Solo MD Unavailable Unavailable Antwon Solo MD Unavailable Unavailable Antwon Solo MD Unavailable Unavailable Antwon Solo MD Unavailable Unavailable Antwon Solo MD Unavailable Unavailable Antwon Solo MD Unavailable Unavailable Antwon Solo MD Unavailable Unavailable Antwon Solo MD Unavailable Unavailable Antwon Solo MD Unavailable Unavailable Antwon Solo MD Unavailable Unavailable Antwon Solo MD Unavailable Unavailable Antwon Solo MD Unavailable Unavailable Antwon Solo MD Unavailable Unavailable Antwon Solo MD Unavailable Unavailable Antwon Solo MD Unavailable Unavailable Antwon Solo MD Unavailable Unavailable Antwon Solo MD Unavailable Unavailable Antwon Solo MD Unavailable Unavailable Antwon Solo MD Unavailable Unavailable Antwon Solo MD Unavailable Unavailable Antwon Solo MD Unavailable Unavailable Antwon Solo MD Unavailable Unavailable Antwon Solo MD Unavailable Unavailable Antwon Solo MD Unavailable Unavailable Antwon Solo MD Unavailable Unavailable Antwon Solo MD Unavailable Unavailable Antwon Solo MD Unavailable Unavailable Antwon Solo MD Unavailable Unavailable Antwon Solo MD Unavailable Unavailable Antwon Solo MD Unavailable Unavailable Antwon Solo MD Unavailable Unavailable Antwon Solo MD Unavailable Unavailable Antwon Solo MD Unavailable Unavailable Antwon Solo MD Unavailable Unavailable Jorge Self MD Unavailable Unavailable Jorge Self MD Unavailable Unavailable Jorge Self MD Unavailable Unavailable Jorge Self MD Unavailable Unavailable Jorge Self MD Unavailable Unavailable Jorge Self MD Unavailable Unavailable Jorge Self MD Unavailable Unavailable Jorge Self MD Unavailable Unavailable Jorge Self MD Unavailable Unavailable Jorge Self MD Unavailable Unavailable Jorge Self MD Unavailable Unavailable Jorge Self MD Unavailable Unavailable Jorge Self MD Unavailable Unavailable Jorge Self MD Unavailable Unavailable Jorge Self MD Unavailable Unavailable Jorge Self MD Unavailable Unavailable Jorge Self MD Unavailable Unavailable Jorge Self MD Unavailable Unavailable Jorge Self MD Unavailable Unavailable Jorge Self MD Unavailable Unavailable Jorge Self MD Unavailable Unavailable ClairJorge mcelroy MD Unavailable Unavailable ClairJorge mcelroy MD Unavailable Unavailable HarrellJorge mcelroy MD Unavailable Unavailable ClairJorge mcelroy MD Unavailable Unavailable HarrellJorge mcelroy MD Unavailable Unavailable Jorge Self MD Unavailable Unavailable HarrellJorge mcelroy MD Unavailable Unavailable ClairJorge mcelroy MD Unavailable Unavailable ClairJorge mcelroy MD Unavailable Unavailable ClairJorge mcelroy MD Unavailable Unavailable HarrellJorge mcelroy MD Unavailable Unavailable HarrellJorge MD Unavailable Unavailable ClairJorge MD Unavailable Unavailable HarrellJorge MD Unavailable Unavailable HarrellJorge MD Unavailable Unavailable ClairJorge MD Unavailable Unavailable ClairJorge MD Unavailable Unavailable HarrellJorge MD Unavailable Unavailable HarrellJorge MD Unavailable Unavailable ClairJorge MD Unavailable Unavailable HarrellJorge MD Unavailable Unavailable ClairJorge MD Unavailable Unavailable ClairJorge MD Unavailable Unavailable HarrellJorge MD Unavailable Unavailable ClairJorge MD Unavailable Unavailable HarrellJorge MD Unavailable Unavailable HarrellJorge MD Unavailable Unavailable HarrellJorge MD Unavailable Unavailable ClairJorge MD Unavailable Unavailable ClairJorge MD Unavailable Unavailable HarrellJorge MD Unavailable Unavailable ClairJorge MD Unavailable Unavailable HarrellJorge MD Unavailable Unavailable HarrellJorge MD Unavailable Unavailable ClairJorge MD Unavailable Unavailable ClairJorge MD Unavailable Unavailable ClairJorge MD Unavailable Unavailable HarrellJorge MD Unavailable Unavailable HarrellJorge MD Unavailable Unavailable ClairJorge MD Unavailable Unavailable HarrellJorge MD Unavailable Unavailable HarrellJorge MD Unavailable Unavailable HarrellJorge MD Unavailable Unavailable HarrellJorge MD Unavailable Unavailable HarrellJorge MD Unavailable Unavailable HarrellJorge mcelroy MD Unavailable Unavailable ClairJorge MD Unavailable Unavailable HarrellJorge MD Unavailable Unavailable ClairJorge MD Unavailable Unavailable HarrellJorge MD Unavailable Unavailable HarrellJorge MD Unavailable Unavailable HarrellJorge mcelroy MD Unavailable Unavailable HarrellJorge mcelroy MD Unavailable Unavailable ClairJorge mcelroy MD Unavailable Unavailable HarrellJorge MD Unavailable Unavailable ClairJorge MD Unavailable Unavailable ClairJorge MD Unavailable Unavailable ClairJorge MD Unavailable Unavailable HarrellJorge MD Unavailable Unavailable HarrellJorge MD Unavailable Unavailable HarrellJorge MD Unavailable Unavailable HarrellJorge MD Unavailable Unavailable HarrellJorge MD Unavailable Unavailable HarrellJorge MD Unavailable Unavailable ClairJorge MD Unavailable Unavailable TANIKA, ANMOL JEZ GENERAL REPAIRER-C Unavailable Unavailable TANIKA, ANMOL JEZ GENERAL REPAIRER-C Unavailable Unavailable TANIKA, ANMOL JEZ GENERAL REPAIRER-C Unavailable Unavailable TANIKA, ANMOL JEZ GENERAL REPAIRER-C Unavailable Unavailable TANIKA, ANMOL JEZ GENERAL REPAIRER-C Unavailable Unavailable TANIKA, ANMOL JEZ GENERAL REPAIRER-C Unavailable Unavailable TANIKA, ANMOL JEZ GENERAL REPAIRER-C Unavailable Unavailable TANIKA, ANMOL JEZ GENERAL REPAIRER-C Unavailable Unavailable TANIKA, ANMOL JEZ GENERAL REPAIRER-C Unavailable Unavailable TANIKA, ANMOL JEZ GENERAL REPAIRER-C Unavailable Unavailable TANIKA, ANMOL JEZ GENERAL REPAIRER-C Unavailable Unavailable TANIKA, ANMOL JEZ GENERAL REPAIRER-C Unavailable Unavailable TANIKA, ANMOL JEZ GENERAL REPAIRER-C Unavailable Unavailable TANIKA, ANMOL JEZ GENERAL REPAIRER-C Unavailable Unavailable TANIKA, ANMOL JEZ GENERAL REPAIRER-C Unavailable Unavailable TANIKA, ANMLO JEZ GENERAL REPAIRER-C Unavailable Unavailable TANIKA, ANMOL JEZ GENERAL REPAIRER-C Unavailable Unavailable Renzo Siddiqui MD Unavailable Unavailable Renzo Siddiqui MD Unavailable Unavailable Renzo Siddiqui MD Unavailable Unavailable Renzo Siddiqui MD Unavailable Unavailable Renzo Siddiqui MD Unavailable Unavailable Renzo Siddiqui MD Unavailable Unavailable Renzo Siddiqui MD Unavailable Unavailable Renzo Siddiqui MD Unavailable Unavailable Renzo Siddiqui MD Unavailable Unavailable Renzo Siddiqui MD Unavailable Unavailable Renzo Siddiqui MD Unavailable Unavailable Renzo Siddiqui MD Unavailable Unavailable Renzo Siddiqui MD Unavailable Unavailable Renzo Siddiqui MD Unavailable Unavailable Renzo Siddiqui MD Unavailable Unavailable Renzo Siddiqui MD Unavailable Unavailable Renzo Siddiqui MD Unavailable Unavailable Renzo Siddiqui MD Unavailable Unavailable Renzo Siddiqui MD Unavailable Unavailable Renzo Siddiqui MD Unavailable Unavailable Renzo Siddiqui MD Unavailable Unavailable Renzo Siddiqui MD Unavailable Unavailable Renzo Siddiqui MD Unavailable Unavailable Renzo Siddiqui MD Unavailable Unavailable Renzo Siddiqui MD Unavailable Unavailable Renzo Siddiqui MD Unavailable Unavailable Renzo Siddiqui MD Unavailable Unavailable Renzo Siddiqui MD Unavailable Unavailable Renzo Siddiqui MD Unavailable Unavailable Renzo Siddiqui MD Unavailable Unavailable Renzo Siddiqui MD Unavailable Unavailable Renzo Siddiqui MD Unavailable Unavailable Renzo Siddiqui MD Unavailable Unavailable Renzo Siddiqui MD Unavailable Unavailable Renzo Siddiqui MD Unavailable Unavailable Renzo Siddiqui MD Unavailable Unavailable Renzo Siddiqui MD Unavailable Unavailable Renzo Siddiqui MD Unavailable Unavailable Siddiqui, Renzo Tom MD Unavailable Unavailable Siddiqui, Renzo Santos MD Unavailable Unavailable Siddiqui, Renzo Santos MD Unavailable Unavailable Siddiqui, Renzo Santos MD Unavailable Unavailable Siddiqui, Renzo Santos MD Unavailable Unavailable Siddiqui, Renzo Santos MD Unavailable Unavailable Siddiqui, Renzo Santos MD Unavailable Unavailable Siddiqui, Renzo Santos MD Unavailable Unavailable Siddiqui, Renzo Santos MD Unavailable Unavailable Siddiqui, Renzo Santos MD Unavailable Unavailable Siddiqui, Renzo Santos MD Unavailable Unavailable Siddiqui, Renzo Santos MD Unavailable Unavailable Siddiqui, Renzo Santos MD Unavailable Unavailable Siddiqui, Renzo Santos MD Unavailable Unavailable Siddiqui, Renzo Santos MD Unavailable Unavailable Siddiqui, Renzo Santos MD Unavailable Unavailable Re-disclosure Warning The records that you are about to access may contain information from federally-assisted alcohol or drug abuse programs. If such information is present, then the following federally mandated warning applies: This information has been disclosed to you from records protected by federal confidentiality rules (42 CFR part 2). The federal rules prohibit you from making any further disclosure of this information unless further disclosure is expressly permitted by the written consent of the person to whom it pertains or as otherwise permitted by 42 CFR part 2. A general authorization for the release of medical or other information is NOT sufficient for this purpose. The Federal rules restrict any use of the information to criminally investigate or prosecute any alcohol or drug abuse patient.The records that you are about to access may contain highly sensitive health information, the redisclosure of which is protected by Article 27-F of the [facility] Public Health law. If you continue you may have access to information: Regarding HIV / AIDS; Provided by facilities licensed or operated by the [facility] Office of Mental Health; or Provided by the [facility] Office for People With Developmental Disabilities. If such information is present, then the following [facility] mandated warning applies: This information has been disclosed to you from confidential records which are protected by state law. State law prohibits you from making any further disclosure of this information without the specific written consent of the person to whom it pertains, or as otherwise permitted by law. Any unauthorized further disclosure in violation of state law may result in a fine or care home sentence or both. A general authorization for the release of medical or other information is NOT sufficient authorization for further disc losure. Family History Family Member Name Family Member Gender Family Member Status Date o f Status Description Data Source(s) Unknown Unknown Problem [facility] ([facility]) Encounters Encounter Providers Location Date Indications Data Source(s ) Outpatient Attender: Tom Garcia/[place]/R eindl 07/21/2021 08:30:00 AM EDT [facility] ([facility], ) Outpatient Attender: JEZ LOPEZ Radha/[place]/R eindl 04/22/2021 08:45:00 AM EDT [facility] ([facility], ) Outpatient Attender: Galo Solo MD Main Office 03/26/2021 10:30:00 AM EDT [facility] ([facility]) Outpatient Attender: Killian Altamirano 0 01/27/2021 08:20:00 AM EDT [facility] ([facility] ) Outpatient Attender: Tom Garcia/[place]/R eindl 01/02/2021 08:30:00 AM EDT [facility] ([facility], ) Outpatient Attender: Tom Garcia/[place]mber/[place]/R eindl 09/04/2020 12:30:00 PM EST [facility] ([facility], ) Outpatient Attender: Killian Altamirano 1 10/06/2019 07:00:00 AM EST [facility] ([facility] ) Outpatient Attender: Tom Garcia/[place]/R eindl 06/09/2020 09:30:00 AM EDT [facility] ([facility] ) Immunizations Vaccine Date Status Description Data Source(s) COVID-19 VACCINE Moderna 07/20/2021 12:00:00 AM EDT completed [facility] Vaccine Series Complete: YESThis Data wa s Submitted to [facility] Via [facility]. Influenza, injectable, MDCK, preservative free, adam valent 07/03/2021 08:15:00 AM EDT completed [facility] ([facility]) Note that this Td is not adsorbed. 01/27/2021 09:12:00 AM EDT compl eted MEDENT ([facility]) COVID-19 VACCINE Moderna 12/03/2020 12:00:00 AM EDT completed [facility] Vaccine Series Complete: YESThis Data wa s Submitted to [facility] Via [employer]. COVID-19 VACCINE, MRNA-1273, LNP-S (MODERNA)/PF 12/03/2020 1 2:00:00 AM EDT completed [facility] COVID-19 VACCINE Moderna 10/30/2020 12:00:00 AM EST completed [facility] Vaccine Series Complete: NOThis Data was Submitted to [facility] Via [employer]. COVID-19 VACCINE, MRNA-1273, LNP-S (MODERNA)/PF 10/30/2020 1 2:00:00 AM EST completed [facility] This CVX code allows reporting of a vacc ination when formulation is unknown (for example, when recording a Influenza vaccination when noted on a vaccination card) 07/16/2020 07:58:00 AM EDT completed GEOVANNY Willough[place] ([facility]) Medications Medication Brand Name Start Date Product Form Dose Route Admi nistrative Instructions Pharmacy Instructions Status Indications Reaction Description Data Source(s) 7 ACTUAT umeclidinium 0.0625 MG/ACTUAT Dry Powder Inha ler [Incruse] Incruse Ellipta 07/21/2021 12:00:00 AM EDT RESPIRATORY active [facility] ([facility], ) 62.5 mcg/actuation 07/21/2021 12:00:00 AM EDT blister with d evice 30 INHALE ONE PUFF BY MOUTH EVERY DAY INHALE ONE PUFF BY MOUTH EVERY DAY SOLD: 07/21/2021 [facility] Prednisone 10 MG Oral Tablet Prednisone 07/21/2021 12:00:00 AM EDT ORAL active [facility] ([facility], ) 10 mg 07/21/2021 12:00:00 AM EDT tablet 40 TAKE 4 TABLETS BY MOUTH EVERY DAY FOR 4 DAYS THEN 3 ONCE DAILY FOR 4 DAYS THEN 2 ONCE DAILY FOR 4 DAYS THEN TAKE 1 TABLET BY MOUTH EVERY DAY FOR 4 DAYS THEN STOP TAKE 4 TABLETS BY MOUTH EVERY DAY FOR 4 DAYS THEN 3 ONCE DAILY FOR 4 DAYS THEN 2 ONCE DAILY FOR 4 DAYS THEN TAKE 1 TABLET BY MOUTH EVERY DAY FOR 4 DAYS THEN STOP SOLD: 07/21/2021 [facility] Cefuroxime 500 MG Oral Tablet Cefuroxime Axetil 07/21/2021 12:00:00 A M EDT ORAL active [facility] ([facility]) 500 mg 07/21/2021 12:00:00 AM EDT tablet 20 TAKE ONE TABLET BY MOUTH TWICE A DAY TAKE ONE TABLET BY MOUTH TWICE A DAY SOLD: 07/21/2021 [facility] 100 mcg/0.5 mL 07/20/2021 12:00:00 AM EDT suspension 0 INJECT DIRECTED PER STANDING ORDER INJECT DIRECTED PER STANDING ORDER SOLD: 07/20/2021 [facility] 137 mcg (0.1 %) 07/06/2021 12:00:00 AM EDT aerosol,spray 30 2 SPRAYS EACH NOSTRIL EVERY MORNING AND 4 HOURS BEFORE AT BEDTIME 2 SPRAYS EACH NOSTRIL EVERY MORNING AND 4 HOURS BEFORE AT BEDTIME SOLD: 07/08/2021 [facility] Administration Of Flu Vaccine 07/03/2021 12:00:00 AM EDT completed [facility] ([facility]) Medication administered onsite 160-4.5 mcg/actuation 06/30/2021 12:00:00 AM EDT HFA aerosol inhaler 10 INHALE TWO PUFFS BY MOUTH TWICE A DAY INHALE TWO PUFFS BY MOUTH TWICE A DAY SOLD: 07/02/2021 [facility] 50 mcg 04/24/2021 12:00:00 AM EDT tablet 90 TAKE ONE TABLET BY MOUTH EVERY DAY TAKE ONE TABLET BY MOUTH EVERY DAY SOLD: 07/21/2021 [facility] 50 mcg 04/24/2021 12:00:00 AM EDT tablet 90 TAKE ONE TABLET BY MOUTH EVERY DAY TAKE ONE TABLET BY MOUTH EVERY DAY SOLD: 04/26/2021 [facility] Prednisone 10 MG Oral Tablet Prednisone 04/22/2021 12:00:00 AM EDT ORAL completed [facility] ([facility], ) 2.5 mg /3 mL (0.083 %) 04/22/2021 12:00:00 AM EDT solu tion for nebulization 525 USE 1 VIAL VIA NEBULIZER FOUR TIMES A DA Y NEEDED USE 1 VIAL VIA NEBULIZER FOUR TIMES A DAY NEEDED SOLD: 04/24/2021 [facility] 10 mg 04/22/2021 12:00:00 AM EDT tablet 40 TAKE FOUR TABLETS BY MOUTH EVERY DAY FOR 4 DAYS THEN 3 ONCE DAILY FOR 4 DAYS THEN 2 ONCE DAILY FOR 4 DAYS THEN 1 ONCE DAILY FOR 4 DAYS THEN STOP TAKE FOUR TABLETS BY MOUTH EVERY DAY FOR 4 DAYS THEN 3 ONCE DAILY FOR 4 DAYS THEN 2 ONCE DAILY FOR 4 DAYS THEN 1 ONCE DAILY FOR 4 DAYS THEN STOP SOLD: 04/24/2021 [facility] Albuterol 0.83 MG/ML Inhalant Solution Albuterol Sulfate 0 04/22/2021 12:00:00 AM EDT active [facility] ([facility], ) 1.479-0.188- 0.225 gram 04/03/2021 12:00:00 AM EDT tablet 24 TAKE DIRECTED BY MOUTH TAKE DIRECTED BY MOUTH SOLD: 04/04/2021 [facility] Sutab Sutab 03/26/2021 12:00:00 AM EDT active [facility] ([facility]) 50 mcg 12/29/2020 12:00:00 AM EDT tablet 30 TAKE ONE TABLET BY MOUTH EVERY DAY TAKE ONE TABLET BY MOUTH EVERY DAY SOLD: 01/27/2021 [facility] 50 mcg 12/29/2020 12:00:00 AM EDT tablet 30 TAKE ONE TABLET BY MOUTH EVERY DAY TAKE ONE TABLET BY MOUTH EVERY DAY SOLD: 03/28/2021 [facility] 50 mcg 12/29/2020 12:00:00 AM EDT tablet 30 TAKE ONE TABLET BY MOUTH EVERY DAY TAKE ONE TABLET BY MOUTH EVERY DAY SOLD: 12/29/2020 [facility] 50 mcg 12/29/2020 12:00:00 AM EDT tablet 30 TAKE ONE TABLET BY MOUTH EVERY DAY TAKE ONE TABLET BY MOUTH EVERY DAY SOLD: 02/24/2021 [facility] 160-4.5 mcg/actuation 12/25/2020 12:00:00 AM EDT HFA aerosol inhaler 10 INHALE TWO PUFFS BY MOUTH TWICE A DAY INHALE TWO PUFFS BY MOUTH TWICE A DAY SOLD: 01/27/2021 [facility] 160-4.5 mcg/actuation 12/25/2020 12:00:00 AM EDT HFA aerosol inhaler 10 INHALE TWO PUFFS BY MOUTH TWICE A DAY INHALE TWO PUFFS BY MOUTH TWICE A DAY SOLD: 03/28/2021 [facility] 160-4.5 mcg/actuation 12/25/2020 12:00:00 AM EDT HFA aerosol inhaler 10 INHALE TWO PUFFS BY MOUTH TWICE A DAY INHALE TWO PUFFS BY MOUTH TWICE A DAY SOLD: 05/30/2021 [facility] montelukast 10 MG Oral Tablet MONTELUKAST SODIUM 12/25/2020 12:0 0:00 AM EDT tablet 90 TAKE ONE TABLET BY MOUTH AT BEDT [place] TAKE ONE TABLET BY MOUTH AT BEDTIME SOLD: 04/04/2021 [facility] montelukast 10 MG Oral Tablet MONTELUKAST SODIUM 12/25/2020 12:0 0:00 AM EDT tablet 90 TAKE ONE TABLET BY MOUTH AT BEDT [place] TAKE ONE TABLET BY MOUTH AT BEDTIME SOLD: 07/08/2021 [facility] montelukast 10 MG Oral Tablet MONTELUKAST SODIUM 12/25/2020 12:0 0:00 AM EDT tablet 90 TAKE ONE TABLET BY MOUTH AT BEDT [place] TAKE ONE TABLET BY MOUTH AT BEDTIME SOLD: 12/26/2020 [facility] 160-4.5 mcg/actuation 12/25/2020 12:00:00 AM EDT HFA aerosol inhaler 10 INHALE TWO PUFFS BY MOUTH TWICE A DAY INHALE TWO PUFFS BY MOUTH TWICE A DAY SOLD: 02/24/2021 [facility] 160-4.5 mcg/actuation 12/25/2020 12:00:00 AM EDT HFA aerosol inhaler 10 INHALE TWO PUFFS BY MOUTH TWICE A DAY INHALE TWO PUFFS BY MOUTH TWICE A DAY SOLD: 12/26/2020 [facility] 160-4.5 mcg/actuation 12/25/2020 12:00:00 AM EDT HFA aerosol inhaler 10 INHALE TWO PUFFS BY MOUTH TWICE A DAY INHALE TWO PUFFS BY MOUTH TWICE A DAY SOLD: 04/28/2021 [facility] 50 mcg/actuation 12/12/2020 12:00:00 AM EDT spray,suspension 16 SPRAY TWO SPRAYS IN EACH NOSTRIL EVERY DAY SPRAY TWO SPRAYS IN EACH NOSTRIL EVERY DAY SOLD: 02/10/2021 [facility] 50 mcg/actuation 12/12/2020 12:00:00 AM EDT spray,suspension 16 SPRAY TWO SPRAYS IN EACH NOSTRIL EVERY DAY SPRAY TWO SPRAYS IN EACH NOSTRIL EVERY DAY SOLD: 12/15/2020 [facility] Fluticasone propionate 0.05 MG/ACTUAT Metered Dose Nam al Horatio 50 mcg/actuation FLUTICASONE PROPIONATE 12/12/2020 12:00:00 AM EDT spray,suspension 16 SPRAY TWO SPRAYS IN EACH NOSTRIL EVERY DAY SPRAY TWO SPRAYS IN EACH NOSTRIL EVERY DAY SOLD: 06/30/2021 [facility] 50 mcg/actuation 12/12/2020 12:00:00 AM EDT spray,suspension 16 SPRAY TWO SPRAYS IN EACH NOSTRIL EVERY DAY SPRAY TWO SPRAYS IN EACH NOSTRIL EVERY DAY SOLD: 03/28/2021 [facility] Fluticasone propionate 0.05 MG/ACTUAT Metered Dose Nam al Horatio 50 mcg/actuation FLUTICASONE PROPIONATE 12/12/2020 12:00:00 AM EDT spray,suspension 16 SPRAY TWO SPRAYS IN EACH NOSTRIL EVERY DAY SPRAY TWO SPRAYS IN EACH NOSTRIL EVERY DAY SOLD: 05/23/2021 [facility] Covid-19 vaccine, Unspecified 12/03/2020 12:00:00 AM EDT completed [facility] ([facility]) Medication administered onsite Covid-19 vaccine, Unspecified 12/03/2020 12:00:00 AM EDT completed [facility] ([facility]) Medication administered onsite Covid-19 vaccine, Unspecified 10/30/2020 12:00:00 AM EST completed [facility] ([facility]) Medication administered onsite Covid-19 vaccine, Unspecified 10/30/2020 12:00:00 AM EST completed [facility] ([facility]) Medication administered onsite 137 mcg (0.1 %) 09/23/2020 12:00:00 AM EST aerosol,spray 30 SPRAY TWO SPRAYS IN EACH NOSTRIL EVERY MORNING AND 4 HOURS BEFORE BEDTIME SPRAY TWO SPRAYS IN EACH NOSTRIL EVERY MORNING AND 4 HOURS BEFORE BEDTIME SOLD: 05/23/2021 [facility] 137 mcg (0.1 %) 09/23/2020 12:00:00 AM EST aerosol,spray 30 SPRAY TWO SPRAYS IN EACH NOSTRIL EVERY MORNING AND 4 HOURS BEFORE BEDTIME SPRAY TWO SPRAYS IN EACH NOSTRIL EVERY MORNING AND 4 HOURS BEFORE BEDTIME SOLD: 03/28/2021 [facility] 137 mcg (0.1 %) 09/23/2020 12:00:00 AM EST aerosol,spray 30 SPRAY TWO SPRAYS IN EACH NOSTRIL EVERY MORNING AND 4 HOURS BEFORE BEDTIME SPRAY TWO SPRAYS IN EACH NOSTRIL EVERY MORNING AND 4 HOURS BEFORE BEDTIME SOLD: 09/25/2020 [facility] 137 mcg (0.1 %) 09/23/2020 12:00:00 AM EST aerosol,spray 30 SPRAY TWO SPRAYS IN EACH NOSTRIL EVERY MORNING AND 4 HOURS BEFORE BEDTIME SPRAY TWO SPRAYS IN EACH NOSTRIL EVERY MORNING AND 4 HOURS BEFORE BEDTIME SOLD: 11/01/2020 [facility] 137 mcg (0.1 %) 09/23/2020 12:00:00 AM EST aerosol,spray 30 SPRAY TWO SPRAYS IN EACH NOSTRIL EVERY MORNING AND 4 HOURS BEFORE BEDTIME SPRAY TWO SPRAYS IN EACH NOSTRIL EVERY MORNING AND 4 HOURS BEFORE BEDTIME SOLD: 02/10/2021 [facility] 137 mcg (0.1 %) 09/23/2020 12:00:00 AM EST aerosol,spray 30 SPRAY TWO SPRAYS IN EACH NOSTRIL EVERY MORNING AND 4 HOURS BEFORE BEDTIME SPRAY TWO SPRAYS IN EACH NOSTRIL EVERY MORNING AND 4 HOURS BEFORE BEDTIME SOLD: 12/15/2020 [facility] 50 mcg 08/21/2020 12:00:00 AM EST tablet 30 TAKE ONE TABLET BY MOUTH EVERY DAY TAKE ONE TABLET BY MOUTH EVERY DAY SOLD: 10/24/2020 [facility] 50 mcg 08/21/2020 12:00:00 AM EST tablet 30 TAKE ONE TABLET BY MOUTH EVERY DAY TAKE ONE TABLET BY MOUTH EVERY DAY SOLD: 11/26/2020 [facility] 50 mcg 08/21/2020 12:00:00 AM EST tablet 30 TAKE ONE TABLET BY MOUTH EVERY DAY TAKE ONE TABLET BY MOUTH EVERY DAY SOLD: 08/22/2020 [facility] 50 mcg 08/21/2020 12:00:00 AM EST tablet 30 TAKE ONE TABLET BY MOUTH EVERY DAY TAKE ONE TABLET BY MOUTH EVERY DAY SOLD: 09/25/2020 [facility] montelukast 10 MG Oral Tablet MONTELUKAST SODIUM 07/14/2020 12:0 0:00 AM EDT tablet 30 TAKE ONE TABLET BY MOUTH AT BEDT [place] TAKE ONE TABLET BY MOUTH AT BEDTIME SOLD: 07/16/2020 [facility] montelukast 10 MG Oral Tablet MONTELUKAST SODIUM 07/14/2020 12:0 0:00 AM EDT tablet 30 TAKE ONE TABLET BY MOUTH AT BEDT [place] TAKE ONE TABLET BY MOUTH AT BEDTIME SOLD: 10/24/2020 [facility] montelukast 10 MG Oral Tablet MONTELUKAST SODIUM 07/14/2020 12:0 0:00 AM EDT tablet 30 TAKE ONE TABLET BY MOUTH AT BEDT [place] TAKE ONE TABLET BY MOUTH AT BEDTIME SOLD: 08/22/2020 [facility] montelukast 10 MG Oral Tablet MONTELUKAST SODIUM 07/14/2020 12:0 0:00 AM EDT tablet 30 TAKE ONE TABLET BY MOUTH AT BEDT [place] TAKE ONE TABLET BY MOUTH AT BEDTIME SOLD: 11/26/2020 [facility] montelukast 10 MG Oral Tablet MONTELUKAST SODIUM 07/14/2020 12:0 0:00 AM EDT tablet 30 TAKE ONE TABLET BY MOUTH AT BEDT [place] TAKE ONE TABLET BY MOUTH AT BEDTIME SOLD: 09/23/2020 [facility] Prednisone 10 MG Oral Tablet Prednisone 07/01/2020 12:00:00 AM EDT ORAL completed [facility] ([facility], ) 160-4.5 mcg/actuation 07/01/2020 12:00:00 AM EDT HFA aerosol inhaler 10 INHALE TWO PUFFS BY MOUTH TWICE A DAY INHALE TWO PUFFS BY MOUTH TWICE A DAY SOLD: 08/29/2020 [facility] 160-4.5 mcg/actuation 07/01/2020 12:00:00 AM EDT HFA aerosol inhaler 10 INHALE TWO PUFFS BY MOUTH TWICE A DAY INHALE TWO PUFFS BY MOUTH TWICE A DAY SOLD: 10/24/2020 [facility] 160-4.5 mcg/actuation 07/01/2020 12:00:00 AM EDT HFA aerosol inhaler 10 INHALE TWO PUFFS BY MOUTH TWICE A DAY INHALE TWO PUFFS BY MOUTH TWICE A DAY SOLD: 07/28/2020 [facility] 160-4.5 mcg/actuation 07/01/2020 12:00:00 AM EDT HFA aerosol inhaler 10 INHALE TWO PUFFS BY MOUTH TWICE A DAY INHALE TWO PUFFS BY MOUTH TWICE A DAY SOLD: 09/25/2020 [facility] 160-4.5 mcg/actuation 07/01/2020 12:00:00 AM EDT HFA aerosol inhaler 10 INHALE TWO PUFFS BY MOUTH TWICE A DAY INHALE TWO PUFFS BY MOUTH TWICE A DAY SOLD: 11/26/2020 [facility] 10 mg 07/01/2020 12:00:00 AM EDT tablet 40 TAKE 4 TABLETS BY MOUTH EVERY DAY FOR 4 DAYS, THEN 3 TABLETS DAILY FOR 4 DAYS, THEN 2 TABLETS DAILY FOR 4 DAYS, THEN 1 TABLET DAILY FOR 4 DAYS THEN STOP TAKE 4 TABLETS BY MOUTH EVERY DAY FOR 4 DAYS, THEN 3 TABLETS DAILY FOR 4 DAYS, THEN 2 TABLETS DAILY FOR 4 DAYS, THEN 1 TABLET DAILY FOR 4 DAYS THEN STOP SOLD: 07/02/2020 [facility] 160-4.5 mcg/actuation 07/01/2020 12:00:00 AM EDT HFA aerosol inhaler 10 INHALE TWO PUFFS BY MOUTH TWICE A DAY INHALE TWO PUFFS BY MOUTH TWICE A DAY SOLD: 07/02/2020 [facility] 60 ACTUAT Budesonide 0.16 MG/ACTUAT / fo rmoterol fumarate 0.0045 MG/ACTUAT Metered Dose Inhaler [Symbicort] Symbicort 06/25/2020 12:00:00 AM EDT RESPIRATORY active [facility] ( [facility], ) Prednisone 10 MG Oral Tablet Prednisone 06/09/2020 12:00:00 AM EDT ORAL completed [facility] ([facility], ) 10 mg 06/09/2020 12:00:00 AM EDT tablet 40 TAKE 4 TABLETS BY MOUTH ONCE DAILY FOR 4 DAYS THEN 3 DAILY FOR 4 DAYS THEN 2 DAILY FOR 4 DAYS THEN 1 DAILY FOR 4 DAYS AND STOP TAKE 4 TABLETS BY MOUTH ONCE DAILY FOR 4 DAYS THEN 3 DAILY FOR 4 DAYS THEN 2 DAILY FOR 4 DAYS THEN 1 DAILY FOR 4 DAYS AND STOP SOLD: 06/09/2020 [facility] 50 mcg 04/25/2020 12:00:00 AM EDT tablet 30 TAKE ONE TABLET BY MOUTH EVERY DAY TAKE ONE TABLET BY MOUTH EVERY DAY SOLD: 06/27/2020 [facility] 50 mcg 04/25/2020 12:00:00 AM EDT tablet 30 TAKE ONE TABLET BY MOUTH EVERY DAY TAKE ONE TABLET BY MOUTH EVERY DAY SOLD: 05/29/2020 [facility] 50 mcg 04/25/2020 12:00:00 AM EDT tablet 30 TAKE ONE TABLET BY MOUTH EVERY DAY TAKE ONE TABLET BY MOUTH EVERY DAY SOLD: 07/28/2020 [facility] 90 mcg/actuation 01/25/2020 12:00:00 AM EDT HFA aerosol inha ler 18 INHALE TWO PUFFS BY MOUTH FOUR TIMES A DAY NEEDED INHALE TWO PUFFS BY MOUTH FOUR TIMES A DAY NEEDED SOLD: 10/27/2020 [facility] montelukast 10 MG Oral Tablet MONTELUKAST SODIUM 01/25/2020 12:0 0:00 AM EDT tablet 30 TAKE ONE TABLET BY MOUTH AT BEDT [place] TAKE ONE TABLET BY MOUTH AT BEDTIME SOLD: 06/17/2020 [facility] 50 mcg/actuation 11/03/2019 12:00:00 AM EST spray,suspension 16 SPRAY TWO SPRAYS IN EACH NOSTRIL EVERY DAY SPRAY TWO SPRAYS IN EACH NOSTRIL EVERY DAY SOLD: 07/16/2020 [facility] 50 mcg/actuation 11/03/2019 12:00:00 AM EST spray,suspension 16 SPRAY TWO SPRAYS IN EACH NOSTRIL EVERY DAY SPRAY TWO SPRAYS IN EACH NOSTRIL EVERY DAY SOLD: 11/01/2020 [facility] 50 mcg/actuation 11/03/2019 12:00:00 AM EST spray,suspension 16 SPRAY TWO SPRAYS IN EACH NOSTRIL EVERY DAY SPRAY TWO SPRAYS IN EACH NOSTRIL EVERY DAY SOLD: 06/09/2020 [facility] 50 mcg/actuation 11/03/2019 12:00:00 AM EST spray,suspension 16 SPRAY TWO SPRAYS IN EACH NOSTRIL EVERY DAY SPRAY TWO SPRAYS IN EACH NOSTRIL EVERY DAY SOLD: 08/22/2020 [facility] 50 mcg/actuation 11/03/2019 12:00:00 AM EST spray,suspension 16 SPRAY TWO SPRAYS IN EACH NOSTRIL EVERY DAY SPRAY TWO SPRAYS IN EACH NOSTRIL EVERY DAY SOLD: 09/30/2020 [facility] 137 mcg (0.1 %) 08/28/2019 12:00:00 AM EST aerosol,spray 30 SPRAY TWO SPRAYS IN EACH NOSTRIL EVERY MORNING AND 4 HOURS BEFORE BEDTIME SPRAY TWO SPRAYS IN EACH NOSTRIL EVERY MORNING AND 4 HOURS BEFORE BEDTIME SOLD: 08/22/2020 [facility] 137 mcg (0.1 %) 08/28/2019 12:00:00 AM EST aerosol,spray 30 SPRAY TWO SPRAYS IN EACH NOSTRIL EVERY MORNING AND 4 HOURS BEFORE BEDTIME SPRAY TWO SPRAYS IN EACH NOSTRIL EVERY MORNING AND 4 HOURS BEFORE BEDTIME SOLD: 06/09/2020 [facility] Insurance Providers Payer name Policy type / Coverage type Policy ID Covered libertarian ID Covered libertarian's relationship to sanz Policy Sanz Plan Information [facility] Int Health Maintenance [facility] ([facility]) [id number] [id number] Self Z [id number] [facility] Aquaris[facility] Int Health Maintenance Organization ([facility]) [id number] Self Z [id number] [facility] Int Health Maintenance Organization ([facility]) [id number] 2800 [id number] Self Z [id number] [facility] Int Health Maintenance Organization ([facility]) [id number] 2800 [id number] Self Z [id number] [facility] Int Health Maintenance Organization ([facility]) [id number] 2800 [id number] Self Z [id number] [facility] Int Health Maintenance Organization ([facility]) [id number] 2800 [id number] Self Z [id number] [facility] Int Health Maintenance Organization ([facility]) [id number] 2800 [id number] Self Z [id number] [facility] Int Health Maintenance Organization ([facility]) [id number] [id number] [facility] Int Health Maintenance Organization ([facility]) [id number] 2800 [id number] Self Z [id number] MEDICARE [id number] SP [id number] A [facility] [id number] [place] [id number] [facility] [id number] [id number] MEDICARE [id number] SP [id number] Medicare Natl Govt Servic Medicare Primary [id number] Self 1 [id number] Medicare Natl Govt Servic Medicare Primary [id number] Self 1 [id number] Medicare Natl Govt Servic Medicare Primary [id number] [id number] Self 1 [id number] Medicare Natl Govt Servic Medicare Primary [id number] Self 1 [id number] MEDICARE [id number] SP [id number] Medicare Natl Govt Servic Medicare Primary [id number] [id number] Self 1 [id number] Medicare Natl Govt Servic Medicare Primary [id number] [id number] Self 1 [id number] Medicare Natl Govt Servic Medicare Primary [id number] Self 1 [id number] Medicare Natl Govt Servic Medicare Primary [id number] Self Medicare Natl Govt Servic Medicare Primary [id number] Self Medicare Natl Govt Servic Medicare Primary [id number] [id number] Self 1 [id number] r ([facility]) [place] [id number] Family Dependent [id number] [facility] [id number] [facility] [id number] ANSI-Commercial [id number] ANSI-Medicare Part B [id number] ANSI-Medicare Part B [id number] ANSI-Commercial [id number] ANSI-Commercial [id number] ANSI-Medicare Part B [id number] ANSI-Commercial [id number] ANSI-Medicare Part B [id number] [place] Medicare Primary [id number] [id number] Self [id number] Medicare [facility] Medicare Primary [id number] 2.16.84[id number] Self [id number] UMR O [id number] P [id number] [place] (Old) Medigap Part B [id number] 2.16.840.1.093828.3.227 .99.4595.8053.0 Family Dependent [id number] [employer] (Old) Medigap Part B [id number] 2.840.1.105895.3.227 .99.4595.8053.0 Family Dependent [id number] UMR [facility] [id number] [facility] [id number] Medicare Natl Gov't Servi Medicare Primary [id number] 2.840.1.373204.3.227.99.1767.2432.0 Self 1 [id number] Umr/Uhc/[employer] Medigap Part B [id number] 9.1767.2432.0 Self [id number] Medicare Natl Gov't Servi Medicare Primary [id number] 2.16840.1.569644.3.227.99.1767.2432.0 Self 1 [id number] [place] (Old) Medigap Part B [id number] .99.4595.8053.0 Family Dependent [id number] [employer] (Old) Medigap Part B [id number] .99.4595.8053.0 Family Dependent [id number] Umr [place] Ppo Medigap Part B [id number] 9.4595.8053.0 Family Dependent [id number] [employer] PPO O [id number] S [id number] MEDICARE C [id number] S [id number] A [place] Ppo Medigap Part B [id number] .4595.8053.0 Family Dependent [id number] MEDICARE [id number] SP [id number] A [employer] PPO O [id number] P [id number] MEDICARE C [id number] S [id number] T [place] Ppo Medigap Part B [id number] .4595.8053.0 Family Dependent [id number] [place] Ppo Medigap Part B [id number] Family Dependent 910 Umr/c/[place] Medigap Part B [id number] Family Dependent [id number] MEDICARE [id number] SP [id number] G79 [facility] [id number] HU2 [id number] [facility] [id number] WI2 [id number] UMR O [id number] S [id number] MEDICARE C [id number] S [id number] [facility] [id number] [place]2 [id number] [facility] [id number] HU2 [id number] Medicare [place] Medicare Primary [id number] Self [id number] Umr Commercial [id number] Family Dependent [id number] [facility]/[employer] Medigap Part B [id number] Family Dependent [id number] Medicare [facility] Gov't Servi Medicare Primary [id number] Self [id number] ANSI-Commercial [id number] ANSI-Medicare Part B [id number] ANSI-Commercial [id number] ANSI-Medicare Part B [id number] ANSI-Commercial [id number] ANSI-Medicare Part B [id number] ANSI-Commercial [id number] ANSI-Medicare Part B [id number] ANSI-Medicare Part B [id number] ANSI-Commercial [id number] [employer]/[facility] (Old) [facility] Part B [id number] [id number] Family Dependent [id number] ANSI-Commercial [id number] ANSI-Medicare Part B [id number] ANSI-Medicare Part B [id number] ANSI-Commercial [id number] Problems, Conditions, and Diagnoses Code Display Name Description Problem Type Effective Dates Data Source(s) 878136251 Screening for malignant neoplasm of colo n Screening for malignant neoplasm of colon Problem 03/26/2021 12:00:00 AM EDT MEDSHERI ([facility]) Surgeries/Procedures Procedure Description Date Indications Data Source(s) Spirometry 07/21/2021 12:00:00 AM YOU NICHOLAS ([facility], ) DEMO&/EVAL OF PT UTILIZ AERSL GEN/NEB/INHLR/IPPB 07/21 12:00:00 AM YOU JAQUEZ ([facility]) OFFICE OUTPATIENT VISIT 25 MINUTES 07/21/2021 12:00:00 AM EDT MEDENT ([facility]) Chronic Care MGMT 20 Mins Clinical Staff Time Per Calendar M [facility] 05/29/2021 12:00:00 AM EDT MED[facility] ([facility] ) Spirometry 04/22/2021 12:00:00 [facility] OFFICE OUTPATIENT VISIT 25 MINUTES 04/22/2021 12:00:00 AM EDT MED[facility] ([facility]) Chronic Care MGMT 20 Mins Clinical Staff Time Per Calendar M [facility] 04/08/2021 12:00:00 AM EDT MED[facility] ([facility] ) OFFICE OUTPATIENT NEW 30 MINUTES 03/26/2021 12:00:00 A M EDT MED[facility] ([facility]) Chronic Care MGMT 20 Mins Clinical Staff Time Per Calendar M [facility] 02/13/2021 12:00:00 AM EDT [facility] ) ECG ROUTINE ECG W/LEAST 12 LDS W/I&R 01/27/2021 12:00: 00 AM EDT MED[facility] ([facility]) OFFICE OUTPATIENT VISIT 25 MINUTES 01/27/2021 12:00:00 AM EDT MED[facility] ([facility]) Chronic Care MGMT 20 Mins Clinical Staff Time Per Calendar M [facility] 01/06/2021 12:00:00 AM EDT [facility] ([facility] ) Spirometry 01/02/2021 12:00:00 AM [facility] OFFICE OUTPATIENT VISIT 25 MINUTES 01/02/2021 12:00:00 AM EDT [facility] ([facility]) Spirometry 09/04/2020 12:00:00 AM EST [facility] Results ID Date Data Source [id number] 07/21/2021 08:18:00 AM EDT [facility] ([facility]) Name Value Range Interpretation Code Description Data Carli rce(s) Supporting Document(s) PDFReport Laboratory test result [facility] ([facility]) FVC-Pred 3.86 L MED[facility] ([facility]) FVC-Pre 1.96 L [facility] ([facility], ) FVC-%Pred-Pre 50 L MED[facility] ([facility], ) Fev1-Pred 2.81 L [facility] ([facility], ) FVC-LLN 3.00 L [facility] ([facility]) Fev1-%Pred-Pre 28 L [facility] ([facility], ) Fev1-Pre 0.81 L [facility] ([facility], ) Fev1-LLN 2.08 L [facility] ([facility], ) Fev6-Pred 3.62 L [facility] ([facility], ) Fev6-Pre 1.76 L [facility] ([facility]) Fev6-LLN 2.78 L [facility] ([facility]) Fev6-%Pred-Pre 48 L [facility] ([facility], ) Yex7puk-Ppuz 73 % [facility] ([facility]) Qna0rzn-%Pred-Pre 56 % [facility] ([facility]) Izv3rwo-Gio 41 % [facility] ([facility]) Crz4qxk-JLS 63 % [facility] ([facility]) Ttv8vtg-Tjjm 94 % [facility] ([facility]) Yhm7thg-Qyl 90 % [facility] ([facility]) Alp0nim-%Pred-Pre 95 % [facility] ([facility]) FEFMax-Pred 7.49 L/E/sec [facility] ([facility], ) FEFMax-LLN 5.36 L/E/sec [facility] ([facility], ) FEFMax-Pre 3.10 L/E/sec [facility] ([facility]) FEFMax-%Pred-Pre 41 L/E/sec [facility] ([facility]) Gsm4768-Rhjv 2.10 L/E/sec [facility] ([facility]) Fvl0371-God 0.29 L/E/sec [facility] ([facility], ) Ubq2481-%Pred-Pre 13 L/E/sec [facility] ([facility]) Pmh7lqn4-Hfno 77 % [facility] ([facility]) ExpTime-Pre 7.95 sec [facility] ([facility]) Xyd3399-BVO 0.63 L/E/sec [facility] ([facility]) Hpn4osq0-%Pred-Pre 59 % [facility] ([facility]) Uag0itr5-Yse 46 % [facility] ([facility]) Qbf2nkh0-FHQ 68 % [facility] ([facility]) ID Date Data Source [id number] 04/22/2021 11:00:00 AM EDT [facility] Name Value Range Interpretation Code Description Data Carli rce(s) Supporting Document(s) SARS-CoV-2 (COVID-19) RNA [Presence] in Respiratory specimen by CRISSY with probe detection Not Detected [facility] This lab was ordered by [facility] and reported by [employer]. ID Date Data Source [id number] 01/26/2021 07:34:00 AM EDT [facility] Name Value Range Interpretation Code Description Data Carli rce(s) Supporting Document(s) Thyrotropin [Units/volume] in Serum or Plasma by Detec tion limit <= 0.05 mIU/L 3.30 uIU/mL 0.36-3.74 [facility] ([facility] ) ID Date Data Source [id number] 01/26/2021 07:34:00 AM EDT [facility] Name Value Range Interpretation Code Description Data Carli rce(s) Supporting Document(s) Triglyceride [Mass/volume] in Serum or Plasma 62 mg/dL 30-150 [facility] ([facility]) Cholesterol [Mass/volume] in Serum or Plasma 230 mg/dL 131-200 [facility] ([facility]) Cholesterol in LDL [Mass/volume] in Serum or Plasma by calcu lation 146 CALC 50-159 [facility] ([facility]) Cholesterol in HDL [Mass/volume] in Serum or Plasma 72 mg/dL 35-60 [facility] ([facility]) ID Date Data Source [id number] 01/26/2021 07:34:00 AM EDT [facility] ([facility]) Name Value Range Interpretation Code Description Data Carli rce(s) Supporting Document(s) Glucose [Mass/volume] in Serum or Plasma 88 mg/dL 74-99 [facility] ([facility]) 100-125 mg/dL PRE-DIABETES/FASTING >126 mg/dL DIABETES/FASTING Urea nitrogen [Mass/volume] in Serum or Plasma 18 mg/dL 7-18 [facility] ([facility]) Creatinine 1.2 mg/dL 0.6-1.3 [facility] ([facility]) Sodium [Moles/volume] in Serum or Plasma 141 meq/L 136-145 [facility] ([facility]) Chloride [Moles/volume] in Serum or Plasma 103 meq/L 98-107 [facility] Potassium [Moles/volume] in Serum or Plasma 4.5 meq/L 3.5-5.1 [facility] ([facility]) Carbon dioxide, total [Moles/volume] in Serum or Plasma 32 meq/L 21 -32 [facility] ([facility]) Calcium [Mass/volume] in Serum or Plasma 9.3 mg/dL 8.5-10.1 [facility] Total Bilirubin 0.7 mg/dL 0.2-1.0 [facility] Alkaline phosphatase isoenzyme [Units/volume] in Serum or Pl asma 55 mg/dL 46-116 [facility] ([facility]) Aspartate aminotransferase [Enzymatic activity/volume] in Serum or Plasma 22 U/L 15-37 [facility] ([facility] ) Alanine aminotransferase [Enzymatic activity/volume] in Seru m or Plasma 28 U/L 12-78 [facility] ([facility]) Albumin [Mass/volume] in Serum or Plasma 4.0 g/dL 3.4-5.0 [facility] ([facility]) Proteinase 3 Ab [Units/volume] in Serum 7.3 g/dL 6.4-8.2 [facility] ([facility]) A/G Ratio 1.21 CALC 1.00-1.90 [facility] ([facility]) Glomerular filtration rate/1.73 sq M pre dicted among blacks [Volume Rate/Area] in Serum or Plasma by Creatinine-based formula (MDRD) Laboratory test result [facility] ([facility]) <content>CHRONIC KIDNEY DISEASE STAGING PER NKF</content>
<content></content>
<content>STAGE I & II GFR >= 60 NORMAL TO MILDLY DECREASED</content>
<content>STAGE III GFR 30-59 MODERATELY DECREASED</content>
<content>STAGE IV GFR 15-29 SEVERELY DECREASED</content>
<content>STAGE V GFR <15 VERY LITTLE GFR LEFT</content>
<content>ESRD GFR <15 ON PR[address]ATE ATTACHER</content>
<content></content> Glomerular filtration rate/1.73 sq M pre dicted among non-blacks [Volume Rate/Area] in Serum or Plasma by Creatinine-based formula (MDRD) 60 mL/min [facility] ID Date Data Source [id number] 01/26/2021 07:34:00 AM EDT [facility] Name Value Range Interpretation Code Description Data Carli rce(s) Supporting Document(s) Leukocytes [#/volume] in Blood by Automated count 6.8 x10*3/UL 4.1-10 .9 [facility] Erythrocytes [#/volume] in Blood by Automated count 4.99 x10*6/UL 4.2 0-6.30 [facility] MCV 89.0 fL 80.0-97.0 [facility] ([facility]) Hematocrit [Volume Fraction] of Blood by Automated count 44.5 % 3 7.0-51.0 [facility] Hemoglobin [Mass/volume] in Blood 14.8 g/dL 12.0-18.0 [facility] MCH 29.6 pg 26.0-32.0 [facility] ([facility]) MCHC 33.2 g/dL 31.0-38.0 [facility]) Erythrocyte distribution width [Ratio] by Automated count 13.5 % 11.6-13.7 [facility] ([facility]) Platelets [#/volume] in Blood by Automated count 292 x10*3/UL 140-440 [facility] ([facility]) MPV 8.3 FL 7.8-11.0 [facility] Lymph % 19.6 % 10.0-58.5 [facility] Mid % 5.8 % 1.7-9.3 [facility] Neut % 74.6 % 37.0-92.0 [facility] ([facility]) Mid # 0.4 x10*3/UL 0.1-0.6 [facility] ([facility]) Lymph # 1.3 x10*3/UL 0.6-4.1 [facility] ([facility]) Neut # 5.1 x10*3/UL 2.0-7.8 [facility] ([facility]) ID Date Data Source [id number] 01/02/2021 08:23:00 AM EDT [facility] ([facility]) Name Value Range Interpretation Code Description Data Carli rce(s) Supporting Document(s) PDFReport Laboratory test result [facility] ([facility], ) FVC-%Pred-Pre 53 L [facility] ([facility], ) FVC-Pred 3.90 L [facility] ([facility]) FVC-Pre 2.08 L [facility] ([facility]) FVC-LLN 3.04 L [facility] ([facility]) Fev1-Pre 0.91 L [facility] ([facility]) Fev1-Pred 2.84 L [facility] ([facility]) Fev1-%Pred-Pre 32 L [facility] ([facility], ) Fev1-LLN 2.12 L [facility] ([facility]) Fev6-Pred 3.66 L [facility] ([facility], ) Fev6-Pre 1.95 L [facility] ([facility], ) Fev6-LLN 2.82 L [facility] ([facility]) Fev6-%Pred-Pre 53 L [facility] ([facility], ) Ums9ral-Icwx 73 % [facility] ([facility]) Pie3pxj-Ond 44 % [facility] ([facility]) Bgc0hap-OJS 64 % [facility] ([facility]) Vsn4yau-%Pred-Pre 59 % [facility] ([facility]) Wnv4zxi-%Pred-Pre 99 % [facility] ([facility]) Mqg9zzx-Kir 94 % [facility] ([facility]) Cen7gio-Clof 94 % [facility] ([facility]) FEFMax-Pred 7.60 L/E/sec [facility] ([facility]) FEFMax-%Pred-Pre 48 L/E/sec [facility] ([facility]) FEFMax-Pre 3.67 L/E/sec MEDENT ([facility] [place]) [id number]-Lebw 2.15 L/E/sec MEDENT ([facility]) FEFMax-LLN 5.47 L/E/sec MED[facility] ([facility] [place]) [id number]-VJL 0.68 L/E/sec MEDENT ([facility], ) Zro8562-Cos 0.33 L/E/sec MEDENT ([facility], ) Chy2473-%Pred-Pre 15 L/E/sec MEDENT ([facility]) ExpTime-Pre 7.12 sec MEDENT ([facility]) Xzy8itf8-Rhtq 78 % [facility] ([facility] [place]) Vfq3ixu1-Ezq 47 % MED[facility] ([facility]) Oua3ytq2-%Pred-Pre 60 % [facility] ([facility]) Wdv8uhw4-AOJ 69 % MEDENT ([facility], ) ID Date Data Source [id number] 09/15/2020 12:00:00 AM EST [facility] Tom Siddiqui MD Patient Name: ADELINE TOPETE20 [facility] Date of : 1950[place] Date of Exam: 09/15/2020DARRYL Lambert [id number]#: Fax: [phone] EXAM: CT THORAX WITHOUT CONTRASTCLINICAL INFORMATION: Followup bronchiectasis.Comparison chest CT is 09/08/2018 which is the only prior.64 slice low dose helical CT scanning was obtained throughout the thoraxwithout intravenous contrast along with sagittal and coronalreconstructions.The mediastinum and pulmonary shaun have not changed significantly. No massor adenopathy has developed. Small but round lymph nodes are noted, statusquo. There are no pleural or pericardial effusions. There is nosignificant change in the appearance of the imaged upper abdomen or imagedosseous structures. Chronic left renal changes, status quo. There is nosignificant change seen in the imaged osseous structures. An old healedleft 8th rib fracture has, however, developed since the last exam.Evaluation of the lung dominguez again shows cylindrical bronchiectasis.This, however, has increased somewhat compared to the prior exam withevidence of increased mild peribronchial thickening. No definite varicoidor saccular changes have developed since the last exam. There are chroniclung field changes, however, these appear essentially stable. In theapical posterior segment of the left upper lobe, there is a curvilineardensity which has developed, however, this is not nodular in appearance.The lung dominguez are otherwise essentially unchanged.IMPRESSION:1. Bronchiectasis and chronic lung field changes as described above.2. New 1 cm s ized curvilinear density in the apical posterior segment ofthe left upper lobe which more likely appears to be a small band offibrosis or subsegmental atelectasis rather than a true new nodule. Thelung dominguez are otherwise unchanged with the exception of theaforementioned bronchiectatic changes.3. Other findings as described above.Accredited by the [employer] [employer] in [place].Ivan Saunders, STEVE/Aaron you for referring JENNIFER TOPETE to our office. Electronically Signed - IVAN SAUNDERS DO 09/15/20 16:43 Name Value Range Interpretation Code Description Data Carli rce(s) Supporting Document(s) ID Date Data Source [id number] 09/04/2020 01:18:00 PM EST MEDENT ([facility], ) Name Value Range Interpretation Code Description Data Carli rce(s) Supporting Document(s) PDFReport Laboratory test result MEDENT ([facility], ) FVC-Pred 3.90 L MEDENT ([facility]) FVC-Pre 2.03 L MEDENT ([facility]) FVC-%Pred-Pre 52 L MEDENT ([facility] [place]) FVC-LLN 3.04 L MEDENT ([facility]) Fev1-Pre 0.90 L MED[facility] ([facility]) Fev1-Pred 2.84 L MEDENT ([facility]) Fev1-%Pred-Pre 31 L MEDENT ([facility]) Fev1-LLN 2.12 L MED[facility] ([facility]) Fev6-Pre 2.03 L MED[facility] ([facility]) Fev6-Pred 3.66 L MED[facility] ([facility]) Fev6-LLN 2.82 L MEDENT ([facility]) Wxy6lih-Unia 73 % MEDENT ([facility]) Fev6-%Pred-Pre 55 L MEDENT ([facility]) Kcd4yjc-Nkz 45 % MED[facility] ([facility]) Tsh9nsw-%Pred-Pre 60 % MEDENT ([facility]) Whz1xek-Rsop 94 % MEDENT ([facility]) Umf3nuo-HFZ 64 % MED[facility] ([facility]) Xbh5xef-%Pred-Pre 106 % MED[facility] ([facility]) Ott9bre-Ykk 100 % MEDENT ([facility]) FEFMax-Pre 3.89 L/E/sec MED[facility] ([facility] [place]) FEFMax-Pred 7.60 L/E/sec MED[facility] ([facility]) FEFMax-%Pred-Pre 51 L/E/sec MED[facility] ([facility]) FEFMax-LLN 5.47 L/E/sec MED[facility] ([facility] [place]) Bjv1622-Ujc 0.38 L/E/sec MED[facility] ([facility]) Ben0708-Hdau 2.15 L/E/sec MED[facility] ([facility]) Jou8474-%Pred-Pre 17 L/E/sec MEDENT ([facility]) Nxx1109-IAA 0.68 L/E/sec MED[facility] ([facility]) Vul5dou5-Qmqc 78 % [facility] ([facility] [place]) ExpTime-Pre 6.08 sec MEDENT ([facility]) Qsx1asp6-Qcu 45 % [facility] ([facility]) Hhs1rmy0-%Pred-Pre 57 % MED[facility] ([facility]) Phb4shp9-ZUD 69 % [facility] ([facility]) ID Date Data Source [id number] 08/05/2020 07:49:00 AM EST MEDENT ([facility]) Name Value Range Interpretation Code Description Data Carli rce(s) Supporting Document(s) Thyrotropin [Units/volume] in Serum or Plasma by Detec tion limit <= 0.05 mIU/L 2.45 uIU/mL 0.36-3.74 MEDENT ([facility] ) ID Date Data Source [id number] 08/05/2020 07:49:00 AM EST MED[facility] ([facility]) Name Value Range Interpretation Code Description Data Carli rce(s) Supporting Document(s) Glucose [Mass/volume] in Serum or Plasma 88 mg/dL 74-99 MEDENT ([facility]) 100-125 mg/dL PRE-DIABETES/FASTING >126 mg/dL DIABETES/FASTING Urea nitrogen [Mass/volume] in Serum or Plasma 20 mg/dL 7-18 MED[facility] ([facility]) Creatinine 1.1 mg/dL 0.6-1.3 [facility] ([facility]) Sodium [Moles/volume] in Serum or Plasma 142 meq/L 136-145 MED[facility] ([facility]) Chloride [Moles/volume] in Serum or Plasma 102 meq/L 98-107 MED[facility] ([facility]) Potassium [Moles/volume] in Serum or Plasma 4.7 meq/L 3.5-5.1 MED[facility] ([facility]) Carbon dioxide, total [Moles/volume] in Serum or Plasma 30 meq/L 21 -32 MED[facility] ([facility]) Calcium [Mass/volume] in Serum or Plasma 9.8 mg/dL 8.5-10.1 MED[facility] ([facility]) Alkaline phosphatase isoenzyme [Units/volume] in Serum or Pl asma 46 mg/dL 46-116 MED[facility] ([facility]) Total Bilirubin 0.6 mg/dL 0.2-1.0 MED[facility] ([facility]) Aspartate aminotransferase [Enzymatic activity/volume] in Serum or Plasma 19 U/L 15-37 MED[facility] ([facility] ) Alanine aminotransferase [Enzymatic activity/volume] in Seru m or Plasma 24 U/L 12-78 MED[facility] ([facility]) Albumin [Mass/volume] in Serum or Plasma 3.8 g/dL 3.4-5.0 MED[facility] ([facility]) A/G Ratio 1.19 CALC 1.00-1.90 MED[facility] ([facility]) Proteinase 3 Ab [Units/volume] in Serum 7.0 g/dL 6.4-8.2 [facility] Glomerular filtration rate/1.73 sq M pre dicted among non-blacks [Volume Rate/Area] in Serum or Plasma by Creatinine-based formula (MDRD) Laboratory test result [facility] Glomerular filtration rate/1.73 sq M pre dicted among blacks [Volume Rate/Area] in Serum or Plasma by Creatinine-based formula (MDRD) Laboratory test result [facility] ([facility]) <content>CHRONIC KIDNEY DISEASE STAGING PER NKF</content>
<content></content>
<content>STAGE I & II GFR >= 60 NORMAL TO MILDLY DECREASED</content>
<content>STAGE III GFR 30-59 MODERATELY DECREASED</content>
<content>STAGE IV GFR 15-29 SEVERELY DECREASED</content>
<content>STAGE V GFR <15 VERY LITTLE GFR LEFT</content>
<content>ESRD GFR <15 ON PROTECTOR PLATE ATTACHER</content>
<content></content> ID Date Data Source [id number] 08/05/2020 07:49:00 AM EST [facility] ([facility]) Name Value Range Interpretation Code Description Data Carli rce(s) Supporting Document(s) Leukocytes [#/volume] in Blood by Automated count 6.1 x10*3/UL 4.1-10 .9 [facility] ([facility]) Erythrocytes [#/volume] in Blood by Automated count 5.08 x10*6/UL 4.2 0-6.30 [facility] Hematocrit [Volume Fraction] of Blood by Automated count 45.2 % 3 7.0-51.0 [facility] Hemoglobin [Mass/volume] in Blood 15.3 g/dL 12.0-18.0 [facility] MCV 88.9 fL 80.0-97.0 [facility] ([facility]) MCHC 33.8 g/dL 31.0-38.0 [facility] MCH 30.1 pg 26.0-32.0 [facility] Erythrocyte distribution width [Ratio] by Automated count 14.0 % 11.6-13.7 [facility] ([facility]) Platelets [#/volume] in Blood by Automated count 324 x10*3/UL 140-440 MED[facility] ([facility]) MPV 8.7 FL 7.8-11.0 [facility] Mid % 6.2 % 1.7-9.3 [facility] Lymph % 22.2 % 10.0-58.5 [facility] Neut % 71.6 % 37.0-92.0 [facility]) Lymph # 1.3 x10*3/UL 0.6-4.1 [facility] ([facility]) Mid # 0.4 x10*3/UL 0.1-0.6 [facility] ([facility]) Neut # 4.4 x10*3/UL 2.0-7.8 [facility] ([facility]) ID Date Data Source [id number] 06/09/2020 09:17:00 AM EDT MEDENT ([facility]) Name Value Range Interpretation Code Description Data Carli rce(s) Supporting Document(s) FVC-Pre 1.93 L MEDENT ([facility]) PDFReport Laboratory test result MEDENT ([facility]) FVC-%Pred-Pre 49 L MEDENT ([facility] [place]) FVC-Pred 3.90 L MED[facility] ([facility]) FVC-LLN 3.04 L MED[facility] ([facility]) Fev1-Pred 2.84 L MEDENT ([facility]) Fev1-%Pred-Pre 29 L MEDENT ([facility]) Fev1-Pre 0.84 L MEDENT ([facility]) Fev1-LLN 2.12 L MEDENT ([facility], ) Fev6-Pre 1.93 L MEDENT ([facility], ) Fev6-Pred 3.66 L MEDENT ([facility]) Fev6-%Pred-Pre 52 L MEDENT ([facility], ) Thz8jak-Usz 44 % MED[facility] ([facility]) Fev6-LLN 2.82 L MEDENT ([facility], ) Mfw7zyc-Dsdk 73 % MED[facility] ([facility]) Uev4hul-%Pred-Pre 59 % MED[facility] ([facility]) Tzz4eqo-DUX 64 % MED[facility] ([facility]) Hfe0npo-Klip 94 % MED[facility] ([facility]) Kow9bja-%Pred-Pre 106 % MED[facility] ([facility]) Nrt4prr-Cjh 100 % MED[facility] ([facility]) FEFMax-Pred 7.60 L/E/sec MEDENT ([facility], ) FEFMax-Pre 4.52 L/E/sec MEDENT ([facility] [place]) FEFMax-%Pred-Pre 59 L/E/sec MEDENT ([facility]) Qec6921-Myeg 2.15 L/E/sec MED[facility] ([facility]) FEFMax-LLN 5.47 L/E/sec MEDENT ([facility] [place]) Bof6552-Oae 0.39 L/E/sec MEDENT ([facility]) Frg3243-%Pred-Pre 18 L/E/sec MEDENT ([facility]) Oia9169-VRU 0.68 L/E/sec MEDENT ([facility]) Ygk5mlo7-Bkjp 78 % MED[facility] ([facility] [place]) ExpTime-Pre 5.61 sec MEDENT ([facility]) Sqe6tpp7-Vwj 44 % MED[facility] ([facility]) Ynz4ova2-%Pred-Pre 56 % MEDENT ([facility], ) Kfv8dip0-HGM 69 % MEDENT ([facility], ) ID Date Data Source [id number] 06/03/2020 12:00:00 AM EDT [facility] Tom Siddiqui MD Patient Name: JENNIFER [id number] [facility] Date of : 1950[place] Date of Exam: 06/03/2020DARRYL Lambert [id number]#: Fax: [phone] EXAM: CHEST (2 VIEW) X-RAYCLINICAL INFORMATION: History of bronchiectasis.Two views.There is mild lung field hyperexpansion. The lung dominguez are clear. Thereis mild bilateral CP angle blunting, right greater than left, likelysecondary to basilar fibrotic changes. No definite patchy parenchymalopacities or pleural effusions are present. The heart is not enlarged andthe osseous structures are within normal limits.IMPRESSION:Likely chronic changes as described above, however, since there are nopriors for comparison, I would suggest consideration made for followup withchest CT if clinically relevant.STEVE Clifton/Aaron you for referring JENNIFER TOPETE to our office. Electronically Signed - IVAN SAUNDERS DO 06/04/20 16:32 Name Value Range Interpretation Code Description Data Carli rce(s) Supporting Document(s) Procedure Social History Code Duration Value Status Description Data Source(s ) Smoking 07/21/2021 12:00:00 AM EDT Patient is a former smoker completed Patient is a former smoker [facility] ([facility]) Vital Signs ID Date Data Source UNK Name Value Range Interpretation Code Description Data Source(s) Respiratory rate 18 /min 18 /min [facility] ( [facility]) Oxygen saturation in Arterial blood by Pulse oximetry 97 % 97 % [facility] ([facility]) Body height 67 [in_i] 67 [in_i] [facility] ([facility]) 5'7" Body weight 130.00 [lb_av] 130.00 [lb_av] MEDEN T ([facility]) Body mass index (BMI) [Ratio] 20.4 kg/m2 20.4 k g/m2 [facility] ([facility]) [place] body weight 148 [lb_av] 148 [lb_av] [facility] Body weight 58.968 kg 58.968 kg [facility] ([facility]) Body surface area Derived from formula 1.68 m2 1.68 m2 [facility] ([facility]) Systolic blood pressure 122 mm[Hg] 122 mm[Hg] M [facility] ([facility]) Diastolic blood pressure 78 mm[Hg] 78 mm[Hg] [facility] ([facility]) Heart rate 89 /min 89 /min [facility] ([facility]) Systolic blood pressure 124 mm[Hg] 124 mm[Hg] M [facility] ([facility]) Body weight 124.00 [lb_av] 124.00 [lb_av] [facility] Body mass index (BMI) [Ratio] 19.4 kg/m2 19.4 k g/m2 [facility] ([facility]) [place] body weight 148 [lb_av] 148 [lb_av] [facility] Body weight 56.246 kg 56.246 kg [facility] ([facility]) Body surface area Derived from formula 1.65 m2 1.65 m2 [facility] ([facility]) Diastolic blood pressure 78 mm[Hg] 78 mm[Hg] [facility] ([facility], ) Heart rate 73 /min 73 /min MED[facility] ([facility], ) Oxygen saturation in Arterial blood by Pulse oximetry 97 % 97 % [facility] ([facility], ) Room Air Body height 67 [in_i] 67 [in_i] MED[facility] ([facility], ) 5'7" Heart rate 65 /min 65 /min [facility] ([facility]) Diastolic blood pressure 76 mm[Hg] 76 mm[Hg] MED[facility] ([facility]) Body mass index (BMI) [Ratio] 20.0 kg/m2 20.0 k g/m2 MED[facility] ([facility]) Body height 67 [in_i] 67 [in_i] [facility] 5'7" Body weight 58.061 kg 58.061 kg [facility] ([facility]) Body weight 128.00 [lb_av] 128.00 [lb_av] MEDEN T ([facility]) Systolic blood pressure 129 mm[Hg] 129 mm[Hg] M EDENT ([facility]) Body temperature 97.2 [degF] 97.2 [degF] MED[facility] ([facility]) Systolic blood pressure 128 mm[Hg] 128 mm[Hg] M EDENT ([facility]) Diastolic blood pressure 70 mm[Hg] 70 mm[Hg] MED[facility] ([facility]) Oxygen saturation in Arterial blood by Pulse oximetry 95 % 95 % [facility] ([facility]) RM Air Heart rate 72 /min 72 /min MED[facility] ([facility]) Body height 67 [in_i] 67 [in_i] MED[facility] ([facility]) 5'7" Body weight 126.25 [lb_av] 126.25 [lb_av] MEDEN T ([facility]) Body mass index (BMI) [Ratio] 19.8 kg/m2 19.8 k g/m2 MED[facility] ([facility]) Oxygen saturation in Arterial blood by Pulse oximetry 100 % 100 % [facility] ([facility], ) Room Air Body temperature 97.3 [degF] 97.3 [degF] [facility] ([facility], ) Body height 67 [in_i] 67 [in_i] MEDENT ([facility]) 5'7" Body weight 127.00 [lb_av] 127.00 [lb_av] MEDEN T ([facility]) Body mass index (BMI) [Ratio] 19.9 kg/m2 19.9 k g/m2 [facility] ([facility]) [place] body weight 148 [lb_av] 148 [lb_av] MEDEN T ([facility]) Body weight 57.607 kg 57.607 kg [facility] ([facility]) Body surface area Derived from formula 1.67 m2 1.67 m2 [facility] ([facility]) Systolic blood pressure 118 mm[Hg] 118 mm[Hg] [facility] ([facility]) Body height 67 [in_i] 67 [in_i] [facility] ([facility]) 5'7" Body weight 127.00 [lb_av] 127.00 [lb_av] MEDEN T ([facility]) Diastolic blood pressure 70 mm[Hg] 70 mm[Hg] [facility] ([facility]) Body mass index (BMI) [Ratio] 19.9 kg/m2 19.9 k g/m2 [facility] ([facility]) [place] body weight 148 [lb_av] 148 [lb_av] MEDEN T ([facility]) Body weight 57.607 kg 57.607 kg [facility] ([facility]) Heart rate 97 /min 97 /min [facility] ([facility]) Body surface area Derived from formula 1.67 m2 1.67 m2 [facility] ([facility]) Oxygen saturation in Arterial blood by Pulse oximetry 100 % 100 % [facility] ([facility]) Room Air Body temperature 97.3 [degF] 97.3 [degF] [facility] ([facility]) Systolic blood pressure 120 mm[Hg] 120 mm[Hg] [facility] ([facility]) Diastolic blood pressure 70 mm[Hg] 70 mm[Hg] [facility] ([facility]) Heart rate 84 /min 84 /min [facility] ([facility]) Oxygen saturation in Arterial blood by Pulse oximetry 95 % 95 % [facility] ([facility]) Room Air Body height 67 [in_i] 67 [in_i] [facility] ([facility]) 5'7" Body weight 131.00 [lb_av] 131.00 [lb_av] MEDEN T ([facility]) Body mass index (BMI) [Ratio] 20.5 kg/m2 20.5 k g/m2 [facility] ([facility]) [place] body weight 148 [lb_av] 148 [lb_av] MEDEN T ([facility]) Body weight 59.422 kg 59.422 kg [facility] ([facility]) Body surface area Derived from formula 1.69 m2 1.69 m2 [facility] ([facility]) Diastolic blood pressure 62 mm[Hg] 62 mm[Hg] [facility] ([facility]) Body weight 126.00 [lb_av] 126.00 [lb_av] MEDEN T ([facility]) Systolic blood pressure 110 mm[Hg] 110 mm[Hg] [facility] Body mass index (BMI) [Ratio] 19.7 kg/m2 19.7 k g/m2 [facility] ([facility]) Heart rate 68 /min 68 /min [facility] ([facility] Body height 67 [in_i] 67 [in_i] MED[facility] ([facility]) 5'7" Body weight 128.00 [lb_av] 128.00 [lb_av] MEDEN T ([facility]) Systolic blood pressure 124 mm[Hg] 124 mm[Hg] M EDENT ([facility]) Diastolic blood pressure 78 mm[Hg] 78 mm[Hg] [facility] ([facility]) Heart rate 78 /min 78 /min [facility] ([facility]) Oxygen saturation in Arterial blood by Pulse oximetry 97 % 97 % [facility] ([facility]) Room Air Body height 67 [in_i] 67 [in_i] [facility] ([facility], ) 5'7" Body mass index (BMI) [Ratio] 20.0 kg/m2 20.0 k g/m2 [facility] ([facility]) [place] body weight 148 [lb_av] 148 [lb_av] GEOVANNY T ([facility]) Body weight 58.061 kg 58.061 kg [facility] ([facility]) Body surface area Derived from formula 1.67 m2 1.67 m2 [facility] ([facility])
[2021-07-27] MEDS ORDERED: LIDOCAINE 2% 100MG/5ML SDV (FOR ANES.) As Ordered ONE (07:10)
[2021-07-27] MEDS ORDERED: propofoL 200 MG/20 ML VIAL As Ordered ONE (07:10)
[2021-07-27] MEDS ORDERED: PRED10TA2 PO (07:16)
--- NOTE | 2021-07-27 08:33 | ROOR ---
Patient Name: Marco Hernandez Procedure Date: 07/27/2021 8:08 AM Date of : 1950 Age: 71 Room: [facility] Gender: Male Note Status: Finalized Procedure: Total Colonoscopy to Cecum + ileoscopy Indications: Screening for colorectal malignant neoplasm Providers: Galo Solo MD Referring MD: LUISITO RAMIREZ JR, MD Requesting Provider: Medicines: Monitored Anesthesia Care Complications: No immediate complications. Procedure: Pre-Anesthesia Assessment: - The heart rate, respiratory rate, oxygen saturations, blood pressure, adequacy of pulmonary ventilation, and response to care were monitored throughout the procedure. The Colonoscope was introduced through the anus and advanced to the terminal ileum, with identification of the appendiceal orifice and IC valve. The colonoscopy was performed without difficulty. The patient tolerated the procedure well. The quality of the bowel preparation was excellent. Findings: The perianal and digital rectal examinations were normal. Non-bleeding internal hemorrhoids were found during retroflexion. The hemorrhoids were small and Grade I (internal hemorrhoids that do not prolapse). Scattered small-mouthed diverticula were found in the recto-sigmoid colon, sigmoid colon and descending colon. The terminal ileum appeared normal. The exam was otherwise without abnormality on direct and retroflexion views. Impression: - Non-bleeding internal hemorrhoids. - Diverticulosis in the recto-sigmoid colon, in the sigmoid colon and in the descending colon. - The examined portion of the ileum was normal. - The examination was otherwise normal on direct and retroflexion views. - No specimens collected. - The exam was otherwise normal to the cecum. Recommendation: - Patient has a contact number available for emergencies. The signs and symptoms of potential delayed complications were discussed with the patient. Return to normal activities tomorrow. Written discharge instructions were provided to the patient. - High fiber diet. - Discharge patient to home. - Continue present medications. - Repeat colonoscopy is not recommended due to current age (66 years or older) for screening purposes. - Return to referring physician. - The findings and recommendations were discussed with the patient. Procedure Code(s): --- Professional --- 00537, Colonoscopy, flexible; diagnostic, including collection of specimen(s) by brushing or washing, when performed (separate procedure) Diagnosis Code(s): --- Professional --- Z12.11, Encounter for screening for malignant neoplasm of colon K64.0, First degree hemorrhoids K57.30, Diverticulosis of large intestine without perforation or abscess without bleeding CPT copyright 2019 [employer]. All rights reserved. The codes documented in this report are preliminary and upon medical writer review may be revised to meet current compliance requirements. Galo Solo MD Galo Solo MD 07/27/2021 8:33:11 AM Electronically signed by Galo Solo MD Number of Addenda: 0 Note Initiated On: 07/27/2021 8:08 AM Estimated Blood Loss: Estimated blood loss: none.
[2021-07-27 08:45] VITALS: BP 137/74
== END 2021-07-27 08:50 | disposition home or self-care (01) ==
LOC: M OPP 07:02
PROVIDERS: ATTEND Internal Medicine Gastroenterology
DX: Z12.11 Encounter for screening for malignant neoplasm of colon (principal); K57.30 Diverticulosis of large intestine without perforation or abscess without bleeding; K64.0 First degree hemorrhoids

== ENCOUNTER → 2021-09-01 | Outpatient (REF) | payer MEDICARE, OTHER ==
[~2021-09-01] MED LIST changes: -MONT10TA10 PO; +MONT10TA97 PO; -NS 1,000 ML IV ONE; +PRED10TA2 PO
== END ==
LOC: M SMT 13:04
PROVIDERS: ATTEND Physician Assistant
DX: R31.0 Gross hematuria (principal)

== ENCOUNTER → 2021-09-01 | Outpatient (CLI) | payer MEDICARE, OTHER | LOC: M PLAIMG 09:18 | PROVIDERS: ATTEND Internal Medicine Pulmonary Disease | DX: R91.8 Other nonspecific abnormal finding of lung field (principal); N28.1 Cyst of kidney, acquired; R31.0 Gross hematuria | CPT/HCPCS: 71250; 81001; 87086; G0463 ==

== ENCOUNTER → 2021-09-07 | Outpatient (CLI) | payer MEDICARE, OTHER ==
[~2021-09-07] MED LIST changes: +ALBU83IN INH; +INCR1INH INH; +ISOVUE-370 76% 100ML VIAL As Ordered ONE
== END ==
LOC: M RAD 10:12
PROVIDERS: ATTEND Physician Assistant
DX: R31.9 Hematuria, unspecified (principal)
CPT/HCPCS: 74178; Q9967

== ENCOUNTER → 2021-10-20 | Outpatient (CLI) | payer MEDICARE, OTHER ==
[~2021-10-20] MED LIST changes: -ALBU83IN INH; -INCR1INH INH; -ISOVUE-370 76% 100ML VIAL As Ordered ONE
== END ==
LOC: M WUC 08:07
PROVIDERS: ATTEND Urology
DX: R31.0 Gross hematuria (principal)

== ENCOUNTER → 2021-10-30 | Outpatient (REF) | payer MEDICARE, OTHER ==
[~2021-10-30] MED LIST changes: +ALBU83IN INH; +INCR1INH INH
== END ==
LOC: M LAB REF 09:27
PROVIDERS: ATTEND Internal Medicine
DX: Z01.818 Encounter for other preprocedural examination (principal); D49.4 Neoplasm of unspecified behavior of bladder

== ENCOUNTER → 2021-11-02 | Outpatient (CLI) | payer MEDICARE, OTHER | LOC: M LABSMTC 10:20 | PROVIDERS: ATTEND Anesthesiology | DX: Z01.812 Encounter for preprocedural laboratory examination (principal); Z20.822 Contact with and (suspected) exposure to COVID-19 ==

== ENCOUNTER → 2021-11-06 | Day surgery (SDC) | payer MEDICARE, OTHER ==
[~2021-11-06] VITALS: Ht 170.2 cm; Wt 56.8 kg
[~2021-11-06] MED LIST changes: +ACETAMINOPHEN 1000MG 100ML IV BTL (OFIRMEV) (J0131 PER 10MG) As Ordered ONE; +CIPROFLOXACIN 400 MG in IV 1 EA IV ONE; +LIDOCAINE 2% 100MG/5ML SDV (FOR ANES.) As Ordered ONE; +LIDOCAINE 2% 5ML JELLY UROJET As Ordered ONE; +LR 1,000 ML IV ONE; +LR 1,000 ML IV SCH; +METOCLOPRAMIDE INJ 10MG/2ML VIAL (J2765 PER 1) IV PRN; +MIDAZOLAM INJ 2MG/2ML VIAL (J2250 PER 1MG) As Ordered ONE; +ONDANSETRON 4MG/2ML VIAL As Ordered ONE; +ONDANSETRON 4MG/2ML VIAL IV PRN; +PHENYLephrine 500MCG 5ML (100MCG/ML) SYRINGE As Ordered ONE; +ROCURONIUM BROMIDE 50 MG/5 ML VIAL As Ordered ONE; +SUGAMMADEX SODIUM 500 MG/5 ML VIAL (BRIDION) As Ordered ONE; +VASOPRESSIN INJ 20 UNITS/ML VIAL As Ordered ONE; +dexameTHASONE 4 MG/ML 1ML VIAL (J1100 PER 1MG) As Ordered ONE; +ePHEDrine SULFATE 25 MG/5 ML(5MG/ML) SYRINGE As Ordered ONE; +fentaNYL 100 MCG/2 ML INJECTION As Ordered ONE; +fentaNYL 100 MCG/2 ML INJECTION IV PRN; +oxyCODONE 5MG TAB PO PRN; +propofoL 200 MG/20 ML VIAL As Ordered ONE
[2021-11-06 11:40] VITALS: BP 120/61
== END | disposition home or self-care (01) ==
LOC: M SDC 07:59
PROVIDERS: ATTEND Specialist
DX: C67.9 Malignant neoplasm of bladder, unspecified (principal); E03.9 Hypothyroidism, unspecified; J44.9 Chronic obstructive pulmonary disease, unspecified; R06.02 Shortness of breath; Z87.442 Personal history of urinary calculi; Z87.891 Personal history of nicotine dependence; Z79.899 Other long term (current) drug therapy; Z79.51 Long term (current) use of inhaled steroids
CPT/HCPCS: 52235; 88305; J0131; J0744; J1100; J2250; J2370; J2405; J3010

== ENCOUNTER → 2021-11-17 | Outpatient (REF) | payer MEDICARE, OTHER ==
[~2021-11-17] MED LIST changes: -ACETAMINOPHEN 1000MG 100ML IV BTL (OFIRMEV) (J0131 PER 10MG) As Ordered ONE; -CIPROFLOXACIN 400 MG in IV 1 EA IV ONE; -D31000TA2 PO; -LIDOCAINE 2% 100MG/5ML SDV (FOR ANES.) As Ordered ONE; -LIDOCAINE 2% 5ML JELLY UROJET As Ordered ONE; -LR 1,000 ML IV ONE; -LR 1,000 ML IV SCH; -METOCLOPRAMIDE INJ 10MG/2ML VIAL (J2765 PER 1) IV PRN; -MIDAZOLAM INJ 2MG/2ML VIAL (J2250 PER 1MG) As Ordered ONE; -ONDANSETRON 4MG/2ML VIAL As Ordered ONE; -ONDANSETRON 4MG/2ML VIAL IV PRN; -PHENYLephrine 500MCG 5ML (100MCG/ML) SYRINGE As Ordered ONE; -ROCURONIUM BROMIDE 50 MG/5 ML VIAL As Ordered ONE; -SUGAMMADEX SODIUM 500 MG/5 ML VIAL (BRIDION) As Ordered ONE; -VASOPRESSIN INJ 20 UNITS/ML VIAL As Ordered ONE; +VITA100093 PO; -dexameTHASONE 4 MG/ML 1ML VIAL (J1100 PER 1MG) As Ordered ONE; -ePHEDrine SULFATE 25 MG/5 ML(5MG/ML) SYRINGE As Ordered ONE; -fentaNYL 100 MCG/2 ML INJECTION As Ordered ONE; -fentaNYL 100 MCG/2 ML INJECTION IV PRN; -oxyCODONE 5MG TAB PO PRN; -propofoL 200 MG/20 ML VIAL As Ordered ONE
[2021-11-17 13:25] LABS: APPEARANCE, URINE HAZY (CLEAR); BACTERIA, URINE AUTO 1+ (NEGATIVE); BILIRUBIN, URINE AUTO NEGATIVE (NEGATIVE); BLOOD, URINE BLOOD 3+ (NEGATIVE); COLOR, URINE YELLOW (YELLOW); GLUCOSE, URINE (UA) AUTO NEGATIVE (NEGATIVE); KETONE, URINE AUTO NEGATIVE (NEGATIVE); LEUKOCYTE ESTERASE, URINE AUTO TRACE (NEGATIVE); MUCUS, URINE SMALL (NEGATIVE); NITRITE, URINE AUTO NEGATIVE (NEGATIVE); PROTEIN, URINE AUTO 1+ mg/dL (NEGATIVE); RBC, URINE AUTO 57 /HPF (0-3); SPECIFIC GRAVITY URINE AUTO 1.014 (1.002-1.035); SQUAMOUS EPITHELIAL CELL UR AU 0 /HPF (0-6); UROBILINOGEN, URINE AUTO 0.2 mg/dL (0.0-2.0); WBC, URINE AUTO 33 /HPF (0-3)
== END ==
LOC: M SMT 13:06
PROVIDERS: ATTEND Physician Assistant
DX: C67.2 Malignant neoplasm of lateral wall of bladder (principal)

== ENCOUNTER → 2021-12-15 | Outpatient (REF) | payer MEDICARE, OTHER ==
[2021-12-15 12:57] LABS: APPEARANCE, URINE CLEAR (CLEAR); BACTERIA, URINE AUTO 1+ (NEGATIVE); BILIRUBIN, URINE AUTO NEGATIVE (NEGATIVE); BLOOD, URINE BLOOD 3+ (NEGATIVE); COLOR, URINE YELLOW (YELLOW); GLUCOSE, URINE (UA) AUTO NEGATIVE (NEGATIVE); KETONE, URINE AUTO NEGATIVE (NEGATIVE); LEUKOCYTE ESTERASE, URINE AUTO NEGATIVE (NEGATIVE); NITRITE, URINE AUTO NEGATIVE (NEGATIVE); PROTEIN, URINE AUTO 1+ mg/dL (NEGATIVE); RBC, URINE AUTO 28 /HPF (0-3); SPECIFIC GRAVITY URINE AUTO 1.014 (1.002-1.035); SQUAMOUS EPITHELIAL CELL UR AU 0 /HPF (0-6); UROBILINOGEN, URINE AUTO 0.2 mg/dL (0.0-2.0); WBC, URINE AUTO 4 /HPF (0-3)
== END ==
LOC: M LAB REF 12:23
PROVIDERS: ATTEND Internal Medicine
DX: C67.2 Malignant neoplasm of lateral wall of bladder (principal)

== ENCOUNTER → 2021-12-28 | Outpatient (REF) | payer MEDICARE, OTHER ==
[2021-12-28 13:43] LABS: APPEARANCE, URINE CLEAR (CLEAR); BACTERIA, URINE AUTO NEGATIVE (NEGATIVE); BILIRUBIN, URINE AUTO NEGATIVE (NEGATIVE); BLOOD, URINE BLOOD 2+ (NEGATIVE); COLOR, URINE YELLOW (YELLOW); GLUCOSE, URINE (UA) AUTO NEGATIVE (NEGATIVE); KETONE, URINE AUTO NEGATIVE (NEGATIVE); LEUKOCYTE ESTERASE, URINE AUTO NEGATIVE (NEGATIVE); NITRITE, URINE AUTO NEGATIVE (NEGATIVE); PROTEIN, URINE AUTO NEGATIVE (NEGATIVE); RBC, URINE AUTO 10 /HPF (0-3); SPECIFIC GRAVITY URINE AUTO 1.011 (1.002-1.035); SQUAMOUS EPITHELIAL CELL UR AU 0 /HPF (0-6); UROBILINOGEN, URINE AUTO 0.2 mg/dL (0.0-2.0); WBC, URINE AUTO 2 /HPF (0-3)
== END ==
LOC: M SMT 12:58
PROVIDERS: ATTEND Physician Assistant
DX: C67.2 Malignant neoplasm of lateral wall of bladder (principal)

== ENCOUNTER → 2022-01-04 | Outpatient (REF) | payer MEDICARE, OTHER ==
[2022-01-04 14:06] LABS: APPEARANCE, URINE HAZY (CLEAR); BACTERIA, URINE AUTO NEGATIVE (NEGATIVE); BILIRUBIN, URINE AUTO NEGATIVE (NEGATIVE); BLOOD, URINE BLOOD 3+ (NEGATIVE); COLOR, URINE YELLOW (YELLOW); GLUCOSE, URINE (UA) AUTO NEGATIVE (NEGATIVE); KETONE, URINE AUTO NEGATIVE (NEGATIVE); LEUKOCYTE ESTERASE, URINE AUTO TRACE (NEGATIVE); MUCUS, URINE SMALL (NEGATIVE); NITRITE, URINE AUTO NEGATIVE (NEGATIVE); PROTEIN, URINE AUTO 2+ mg/dL (NEGATIVE); RBC, URINE AUTO 26 /HPF (0-3); SQUAMOUS EPITHELIAL CELL UR AU 0 /HPF (0-6); UROBILINOGEN, URINE AUTO 0.2 mg/dL (0.0-2.0); WBC, URINE AUTO 25 /HPF (0-3)
== END ==
LOC: M SMT 13:15
PROVIDERS: ATTEND Physician Assistant
DX: C67.2 Malignant neoplasm of lateral wall of bladder (principal)

== ENCOUNTER → 2022-01-18 | Outpatient (REF) | payer MEDICARE, OTHER ==
[2022-01-18 15:00] LABS: APPEARANCE, URINE CLEAR (CLEAR); BACTERIA, URINE AUTO NEGATIVE (NEGATIVE); BILIRUBIN, URINE AUTO NEGATIVE (NEGATIVE); BLOOD, URINE BLOOD 2+ (NEGATIVE); COLOR, URINE YELLOW (YELLOW); GLUCOSE, URINE (UA) AUTO NEGATIVE (NEGATIVE); KETONE, URINE AUTO NEGATIVE (NEGATIVE); LEUKOCYTE ESTERASE, URINE AUTO NEGATIVE (NEGATIVE); MUCUS, URINE SMALL (NEGATIVE); NITRITE, URINE AUTO NEGATIVE (NEGATIVE); PROTEIN, URINE AUTO 1+ mg/dL (NEGATIVE); RBC, URINE AUTO 14 /HPF (0-3); SPECIFIC GRAVITY URINE AUTO 1.019 (1.002-1.035); SQUAMOUS EPITHELIAL CELL UR AU 0 /HPF (0-6); UROBILINOGEN, URINE AUTO 0.2 mg/dL (0.0-2.0); WBC, URINE AUTO 6 /HPF (0-3)
== END ==
LOC: M SMT 12:56
PROVIDERS: ATTEND Physician Assistant
DX: C67.2 Malignant neoplasm of lateral wall of bladder (principal)

== ENCOUNTER → 2022-01-25 | Outpatient (REF) | payer MEDICARE, OTHER ==
[2022-01-25 13:43] LABS: APPEARANCE, URINE CLEAR (CLEAR); BACTERIA, URINE AUTO NEGATIVE (NEGATIVE); BILIRUBIN, URINE AUTO NEGATIVE (NEGATIVE); BLOOD, URINE BLOOD 2+ (NEGATIVE); COLOR, URINE YELLOW (YELLOW); GLUCOSE, URINE (UA) AUTO NEGATIVE (NEGATIVE); KETONE, URINE AUTO NEGATIVE (NEGATIVE); LEUKOCYTE ESTERASE, URINE AUTO NEGATIVE (NEGATIVE); MUCUS, URINE SMALL (NEGATIVE); NITRITE, URINE AUTO NEGATIVE (NEGATIVE); PROTEIN, URINE AUTO 1+ mg/dL (NEGATIVE); RBC, URINE AUTO 19 /HPF (0-3); SPECIFIC GRAVITY URINE AUTO 1.016 (1.002-1.035); SQUAMOUS EPITHELIAL CELL UR AU 0 /HPF (0-6); UROBILINOGEN, URINE AUTO 0.2 mg/dL (0.0-2.0); WBC, URINE AUTO 3 /HPF (0-3)
== END ==
LOC: M SMT 12:53
PROVIDERS: ATTEND Physician Assistant
DX: C67.2 Malignant neoplasm of lateral wall of bladder (principal)

== ENCOUNTER → 2022-03-12 | Outpatient (REF) | payer MEDICARE, OTHER ==
[~2022-03-12] MED LIST changes: +ALBU2.5V10 INH; -ALBU83IN INH; +SPIR12.9 INH; +SYMB16INH INH
[2022-03-12 17:47] LABS: APPEARANCE, URINE CLEAR (CLEAR); BACTERIA, URINE AUTO NEGATIVE (NEGATIVE); BILIRUBIN, URINE AUTO NEGATIVE (NEGATIVE); BLOOD, URINE BLOOD 2+ (NEGATIVE); COLOR, URINE YELLOW (YELLOW); GLUCOSE, URINE (UA) AUTO NEGATIVE (NEGATIVE); KETONE, URINE AUTO NEGATIVE (NEGATIVE); LEUKOCYTE ESTERASE, URINE AUTO NEGATIVE (NEGATIVE); MUCUS, URINE SMALL (NEGATIVE); NITRITE, URINE AUTO NEGATIVE (NEGATIVE); PROTEIN, URINE AUTO NEGATIVE (NEGATIVE); RBC, URINE AUTO 2 /HPF (0-3); SPECIFIC GRAVITY URINE AUTO 1.012 (1.002-1.035); SQUAMOUS EPITHELIAL CELL UR AU 0 /HPF (0-6); UROBILINOGEN, URINE AUTO 0.2 mg/dL (0.0-2.0); WBC, URINE AUTO 1 /HPF (0-3)
== END ==
LOC: M SMT 16:40
PROVIDERS: ATTEND Urology
DX: C67.9 Malignant neoplasm of bladder, unspecified (principal); Z79.899 Other long term (current) drug therapy

== ENCOUNTER → 2022-03-29 | Outpatient (REF) | payer MEDICARE, OTHER | LOC: M SMT 12:51 | PROVIDERS: ATTEND Urology | DX: Z01.818 Encounter for other preprocedural examination (principal); N39.0 Urinary tract infection, site not specified; C67.9 Malignant neoplasm of bladder, unspecified ==

== ENCOUNTER → 2022-03-31 | Outpatient (CLI) | payer MEDICARE, OTHER ==
[2022-03-31 12:04] LABS: HEMATOCRIT 41.8 % (42.0-52.0); HEMOGLOBIN 13.3 g/dl (13.5-17.5); MEAN CORPUSCULAR HEMOGLOBIN 29.4 pg (27.0-33.0); MEAN CORPUSCULAR HGB CONC 31.8 g/dl (32.0-36.5); MEAN CORPUSCULAR VOLUME 92.5 fl (80.0-96.0); PLATELET COUNT, AUTOMATED 250 10^3/uL (150-450); RED BLOOD COUNT 4.52 10^6/uL (4.30-6.10); WHITE BLOOD COUNT 5.5 10^3/uL (4.0-10.0)
[2022-03-31 14:17] LABS: CALCIUM LEVEL 9.3 MG/DL (8.8-10.2); CREATININE FOR GFR 1.27 MG/DL (0.70-1.30); GLOMERULAR FILTRATION RATE 59.2 (>42); POTASSIUM SERUM 4.3 MEQ/L (3.5-5.1)
== END ==
LOC: M LABSMTC 08:36
PROVIDERS: ATTEND Urology
DX: Z01.812 Encounter for preprocedural laboratory examination (principal); C67.9 Malignant neoplasm of bladder, unspecified

== ENCOUNTER 2022-04-05 11:41 | Day surgery (SDC) | payer MEDICARE, OTHER ==
[~2022-04-05] VITALS: Ht 170.2 cm; Wt 56.3 kg
[~2022-04-05 11:41] MED LIST changes: +ceFAZolin SOD 2 GM in IV 1 EA IV ONE
[2022-04-05] MEDS ORDERED: LR 1,000 ML IV SCH ×2 (12:30→13:50)
[2022-04-05] MEDS ORDERED: LIDOCAINE 2% 100MG/5ML SDV (FOR ANES.) As Ordered ONE (12:45)
[2022-04-05] MEDS ORDERED: propofoL 200 MG/20 ML VIAL As Ordered ONE (12:45)
[2022-04-05] MEDS ORDERED: fentaNYL 100 MCG/2 ML INJECTION As Ordered ONE (12:46)
[2022-04-05] MEDS ORDERED: MIDAZOLAM INJ 2MG/2ML VIAL (J2250 PER 1MG) As Ordered ONE (12:46)
[2022-04-05] MEDS ORDERED: ePHEDrine SULFATE 25 MG/5 ML(5MG/ML) SYRINGE As Ordered ONE (13:08)
[2022-04-05] MEDS ORDERED: PHENYLephrine 500MCG 5ML (100MCG/ML) SYRINGE As Ordered ONE (13:08)
[2022-04-05] MEDS ORDERED: ACETAMINOPHEN 1000MG 100ML IV BTL (OFIRMEV) (J0131 PER 10MG) As Ordered ONE (13:14)
[2022-04-05] MEDS ORDERED: ONDANSETRON 4MG 2ML VIAL As Ordered ONE (13:14)
[2022-04-05] MEDS ORDERED: dexameTHASONE 4 MG/ML 1ML VIAL (J1100 PER 1MG) As Ordered ONE (13:15)
[2022-04-05] MEDS ORDERED: HYDROMORPHONE HCL 0.5 MG/ 0.5 ML SYRINGE (J1170 PER 1) IV PRN (13:50)
[2022-04-05] MEDS ORDERED: oxyCODONE 5MG TAB PO PRN (13:50)
[2022-04-05] MEDS ORDERED: fentaNYL 100 MCG/2 ML INJECTION IV PRN (13:50)
[2022-04-05] MEDS ORDERED: ONDANSETRON 4MG 2ML VIAL IV PRN (13:50)
[2022-04-05] MEDS ORDERED: ACETAMINOPHEN TAB 650MG DOSE (2X325MG) PO PRN (14:30)
[2022-04-05 15:26] VITALS: BP 123/67
== END 2022-04-05 15:57 | disposition home or self-care (01) ==
LOC: M SDC 11:41
PROVIDERS: ATTEND Urology
DX: C67.9 Malignant neoplasm of bladder, unspecified (principal); E03.9 Hypothyroidism, unspecified; J44.9 Chronic obstructive pulmonary disease, unspecified; Z79.51 Long term (current) use of inhaled steroids; Z79.899 Other long term (current) drug therapy
CPT/HCPCS: 52235; 88307; J0131; J0690; J1100; J2250; J2370; J2405; J3010

== ENCOUNTER → 2022-05-25 | Outpatient (REF) | payer MEDICARE, OTHER ==
[~2022-05-25] MED LIST changes: -ceFAZolin SOD 2 GM in IV 1 EA IV ONE
[2022-05-25 14:23] LABS: APPEARANCE, URINE MANUAL CLEAR (CLEAR); COLOR, URINE MANUAL YELLOW (YELLOW)
[2022-05-25 14:25] LABS: BILIRUBIN, URINE MANUAL NEGATIVE (NEGATIVE); BLOOD URINE MANUAL NEGATIVE (NEGATIVE); GLUCOSE, URINE (UA) MANUAL NEGATIVE (NEGATIVE); KETONE, URINE MANUAL NEGATIVE (NEGATIVE); LEUKOCYTE ESTERASE, URINE MAN TRACE (NEGATIVE); NITRITE, URINE MANUAL NEGATIVE (NEGATIVE); UROBILINOGEN, URINE MANUAL NORMAL (NORMAL)
[2022-05-25 14:28] LABS: PROTEIN, URINE MANUAL TRACE mg/dL (NEGATIVE)
[2022-05-25 14:36] LABS: BACTERIA, URINE NONE SEEN; HYALINE CAST, URINE NONE SEEN /lpf (0-1); MUCUS, URINE SMALL AMOUNT (NEGATIVE); RBC, URINE 0-1 /hpf (0-3); SQUAMOUS EPITHELIAL CELL URINE SMALL AMOUNT /hpf (SMALL AMT)
== END ==
LOC: M SMT 13:17
PROVIDERS: ATTEND Physician Assistant
DX: C67.9 Malignant neoplasm of bladder, unspecified (principal)

== ENCOUNTER → 2022-05-26 | Outpatient (CLI) | payer MEDICARE, OTHER ==
[2022-05-26 11:12] LABS: BASO % 0.2 % (0.0-1.0); EOS # 0.1 10^3/uL (0.0-0.5); EOS % 1.2 % (0.0-3.0); HEMATOCRIT 42.1 % (42.0-52.0); HEMOGLOBIN 13.4 g/dl (13.5-17.5); LYMPH # 1.6 10^3/uL (1.5-5.0); LYMPH % 16.1 % (24.0-44.0); MEAN CORPUSCULAR HEMOGLOBIN 29.5 pg (27.0-33.0); MEAN CORPUSCULAR HGB CONC 31.8 g/dl (32.0-36.5); MEAN CORPUSCULAR VOLUME 92.5 fl (80.0-96.0); MONO % 10.1 % (2.0-8.0); NEUTROPHILS # 7.2 10^3/uL (1.5-8.5); PLATELET COUNT, AUTOMATED 324 10^3/uL (150-450); RED BLOOD COUNT 4.55 10^6/uL (4.30-6.10); WHITE BLOOD COUNT 9.9 10^3/uL (4.0-10.0)
[2022-05-26 11:50] LABS: BLOOD UREA NITROGEN 26 MG/DL (7-18); CALCIUM LEVEL 9.1 MG/DL (8.8-10.2); CARBON DIOXIDE LEVEL 32 MEQ/L (21-32); CHLORIDE LEVEL 104 MEQ/L (98-107); CREATININE FOR GFR 1.15 MG/DL (0.70-1.30); GLOMERULAR FILTRATION RATE > 60.0 (>42); GLUCOSE, FASTING 80 MG/DL (70-100); POTASSIUM SERUM 4.2 MEQ/L (3.5-5.1); SODIUM LEVEL 138 MEQ/L (136-145)
== END ==
LOC: M PLALAB 08:34
PROVIDERS: ATTEND Physician Assistant
DX: C67.9 Malignant neoplasm of bladder, unspecified (principal); Z79.899 Other long term (current) drug therapy

== ENCOUNTER → 2022-06-07 | Outpatient (REF) | payer MEDICARE, OTHER ==
[2022-06-07 13:51] LABS: APPEARANCE, URINE MANUAL CLEAR (CLEAR); COLOR, URINE MANUAL YELLOW (YELLOW)
[2022-06-07 13:52] LABS: SPECIFIC GRAVITY,URINE MANUAL 1.005 (1.002-1.035)
[2022-06-07 13:53] LABS: BILIRUBIN, URINE MANUAL NEGATIVE (NEGATIVE); BLOOD URINE MANUAL POSITIVE (NEGATIVE); GLUCOSE, URINE (UA) MANUAL NEGATIVE (NEGATIVE); KETONE, URINE MANUAL NEGATIVE (NEGATIVE); LEUKOCYTE ESTERASE, URINE MAN TRACE (NEGATIVE); NITRITE, URINE MANUAL NEGATIVE (NEGATIVE); PROTEIN, URINE MANUAL TRACE mg/dL (NEGATIVE); UROBILINOGEN, URINE MANUAL NORMAL (NORMAL)
[2022-06-07 14:04] LABS: SQUAMOUS EPITHELIAL CELL URINE SMALL AMOUNT /hpf (SMALL AMT)
[2022-06-07 14:05] LABS: BACTERIA, URINE SMALL AMOUNT; HYALINE CAST, URINE NONE SEEN /lpf (0-1)
== END ==
LOC: M SMT 13:12
PROVIDERS: ATTEND Urology
DX: C67.9 Malignant neoplasm of bladder, unspecified (principal)

== ENCOUNTER → 2022-06-14 | Outpatient (REF) | payer MEDICARE, OTHER ==
[2022-06-14 13:43] LABS: APPEARANCE, URINE MANUAL HAZY (CLEAR); COLOR, URINE MANUAL YELLOW (YELLOW)
[2022-06-14 13:44] LABS: BILIRUBIN, URINE MANUAL NEGATIVE (NEGATIVE); BLOOD URINE MANUAL POSITIVE (NEGATIVE); GLUCOSE, URINE (UA) MANUAL NEGATIVE (NEGATIVE); KETONE, URINE MANUAL NEGATIVE (NEGATIVE); LEUKOCYTE ESTERASE, URINE MAN NEGATIVE (NEGATIVE); NITRITE, URINE MANUAL NEGATIVE (NEGATIVE); PROTEIN, URINE MANUAL NEGATIVE (NEGATIVE); UROBILINOGEN, URINE MANUAL NORMAL (NORMAL)
[2022-06-14 13:58] LABS: MUCUS, URINE MOD AMOUNT (NEGATIVE); TRANSITIONAL EPI CELLS, URINE SMALL AMOUNT /hpf
== END ==
LOC: M SMT 12:47
PROVIDERS: ATTEND Urology
DX: C67.9 Malignant neoplasm of bladder, unspecified (principal)

== ENCOUNTER → 2022-07-13 | Outpatient (REF) | payer MEDICARE, OTHER | LOC: M SMT 15:17 | PROVIDERS: ATTEND Urology | DX: C67.9 Malignant neoplasm of bladder, unspecified (principal) ==

== ENCOUNTER → 2022-08-11 | Outpatient (REF) | payer MEDICARE, OTHER ==
[2022-08-11 14:56] LABS: APPEARANCE, URINE MANUAL CLEAR (CLEAR); BILIRUBIN, URINE MANUAL NEGATIVE (NEGATIVE); BLOOD URINE MANUAL NEGATIVE (NEGATIVE); COLOR, URINE MANUAL YELLOW (YELLOW); GLUCOSE, URINE (UA) MANUAL NEGATIVE (NEGATIVE); KETONE, URINE MANUAL NEGATIVE (NEGATIVE); LEUKOCYTE ESTERASE, URINE MAN NEGATIVE (NEGATIVE); NITRITE, URINE MANUAL NEGATIVE (NEGATIVE); PROTEIN, URINE MANUAL NEGATIVE (NEGATIVE); UROBILINOGEN, URINE MANUAL NORMAL (NORMAL)
== END ==
LOC: M SMT 13:06
PROVIDERS: ATTEND Urology
DX: C67.9 Malignant neoplasm of bladder, unspecified (principal); Z79.899 Other long term (current) drug therapy

== ENCOUNTER → 2022-08-23 | Outpatient (REF) | payer MEDICARE, OTHER ==
[2022-08-23 14:53] LABS: APPEARANCE, URINE MANUAL CLEAR (CLEAR); COLOR, URINE MANUAL YELLOW (YELLOW)
[2022-08-23 14:56] LABS: BILIRUBIN, URINE MANUAL NEGATIVE (NEGATIVE); BLOOD URINE MANUAL POSITIVE (NEGATIVE); GLUCOSE, URINE (UA) MANUAL NEGATIVE (NEGATIVE); KETONE, URINE MANUAL 1+ mg/dL (NEGATIVE); LEUKOCYTE ESTERASE, URINE MAN NEGATIVE (NEGATIVE); NITRITE, URINE MANUAL NEGATIVE (NEGATIVE); PROTEIN, URINE MANUAL 1+ mg/dL (NEGATIVE); UROBILINOGEN, URINE MANUAL NORMAL (NORMAL)
[2022-08-23 15:13] LABS: BACTERIA, URINE SMALL AMOUNT; HYALINE CAST, URINE NONE SEEN /lpf (0-1); MUCUS, URINE SMALL AMOUNT (NEGATIVE); SQUAMOUS EPITHELIAL CELL URINE SMALL AMOUNT /hpf (SMALL AMT); WBC, URINE 0-1 /hpf (0-3)
== END ==
LOC: M SMT 12:53
PROVIDERS: ATTEND Urology
DX: C67.9 Malignant neoplasm of bladder, unspecified (principal)

== ENCOUNTER → 2022-08-30 | Outpatient (REF) | payer MEDICARE, OTHER ==
[2022-08-30 14:22] LABS: APPEARANCE, URINE MANUAL CLEAR (CLEAR); COLOR, URINE MANUAL LT YELLOW (YELLOW); SPECIFIC GRAVITY,URINE MANUAL 1.005 (1.002-1.035)
[2022-08-30 14:25] LABS: BILIRUBIN, URINE MANUAL NEGATIVE (NEGATIVE); BLOOD URINE MANUAL TRACE (NEGATIVE); GLUCOSE, URINE (UA) MANUAL NEGATIVE (NEGATIVE); KETONE, URINE MANUAL NEGATIVE (NEGATIVE); LEUKOCYTE ESTERASE, URINE MAN TRACE (NEGATIVE); NITRITE, URINE MANUAL NEGATIVE (NEGATIVE); PROTEIN, URINE MANUAL NEGATIVE (NEGATIVE); UROBILINOGEN, URINE MANUAL NORMAL (NORMAL)
[2022-08-30 15:16] LABS: BACTERIA, URINE SMALL AMOUNT; HYALINE CAST, URINE NONE SEEN /lpf (0-1); SQUAMOUS EPITHELIAL CELL URINE SMALL AMOUNT /hpf (SMALL AMT)
== END ==
LOC: M SMT 13:09
PROVIDERS: ATTEND Urology
DX: C67.9 Malignant neoplasm of bladder, unspecified (principal); Z79.899 Other long term (current) drug therapy

== ENCOUNTER → 2022-09-03 | Outpatient (CLI) | payer MEDICARE, OTHER | LOC: M RAD 09:48 | PROVIDERS: ATTEND Internal Medicine Pulmonary Disease | DX: R91.8 Other nonspecific abnormal finding of lung field (principal) ==

== ENCOUNTER → 2022-10-04 | Outpatient (REF) | payer MEDICARE, OTHER | LOC: M SMT 12:55 | PROVIDERS: ATTEND Urology | DX: C67.9 Malignant neoplasm of bladder, unspecified (principal) ==

== ENCOUNTER → 2022-10-15 | Outpatient (CLI) | payer MEDICARE, OTHER | LOC: M RAD 12:34 | PROVIDERS: ATTEND Internal Medicine Pulmonary Disease | DX: R91.8 Other nonspecific abnormal finding of lung field (principal); J44.9 Chronic obstructive pulmonary disease, unspecified ==

== ENCOUNTER → 2022-11-25 | Outpatient (CLI) | payer MEDICARE, OTHER | LOC: M WUC 11:43 | PROVIDERS: ATTEND Nurse Practitioner Family | DX: M25.519 Pain in unspecified shoulder (principal) ==

== ENCOUNTER → 2023-01-03 | Outpatient (REF) | payer MEDICARE, OTHER ==
[~2023-01-03] MED LIST changes: +FLUT50SP17; -FLUTISP
== END ==
LOC: M SMT 13:15
PROVIDERS: ATTEND Urology
DX: C67.9 Malignant neoplasm of bladder, unspecified (principal)

== ENCOUNTER → 2023-03-01 | Outpatient (CLI) | payer MEDICARE, OTHER | LOC: M PLAIMG 12:50 | PROVIDERS: ATTEND Internal Medicine Pulmonary Disease | DX: R91.8 Other nonspecific abnormal finding of lung field (principal) ==

== ENCOUNTER → 2023-04-18 | Outpatient (REF) | payer MEDICARE, OTHER | LOC: M SMT 17:34 | PROVIDERS: ATTEND Urology | DX: C67.9 Malignant neoplasm of bladder, unspecified (principal) ==

== ENCOUNTER → 2023-07-18 | Outpatient (REF) | payer MEDICARE, OTHER | LOC: M SMT 17:34 | PROVIDERS: ATTEND Urology | DX: C67.9 Malignant neoplasm of bladder, unspecified (principal) ==

== ENCOUNTER → 2023-10-06 | Outpatient (CLI) | payer MEDICARE, OTHER ==
[~2023-10-06] MED LIST changes: -FLUT50SP17; +FLUTISP
== END ==
LOC: M PLAIMG 10:28
PROVIDERS: ATTEND Internal Medicine Pulmonary Disease
DX: R91.8 Other nonspecific abnormal finding of lung field (principal); J47.9 Bronchiectasis, uncomplicated; I25.10 Atherosclerotic heart disease of native coronary artery without angina pectoris; N20.0 Calculus of kidney; N28.1 Cyst of kidney, acquired; J43.9 Emphysema, unspecified

== ENCOUNTER → 2023-10-24 | Outpatient (REF) | payer MEDICARE, OTHER | LOC: M SMT 16:25 | PROVIDERS: ATTEND Urology | DX: C67.9 Malignant neoplasm of bladder, unspecified (principal) ==

== ENCOUNTER → 2024-03-19 | Outpatient (REF) | payer MEDICARE, OTHER | LOC: M SMT 17:10 | PROVIDERS: ATTEND Urology | DX: C67.9 Malignant neoplasm of bladder, unspecified (principal) ==

== ENCOUNTER → 2024-09-06 | Outpatient (REF) | payer MEDICARE, OTHER | LOC: M LAB REF 12:16 | PROVIDERS: ATTEND Internal Medicine | DX: N52.9 Male erectile dysfunction, unspecified (principal) ==

== ENCOUNTER → 2024-09-24 | Outpatient (REF) | payer MEDICARE, OTHER | LOC: M SMT 13:04 | PROVIDERS: ATTEND Urology | DX: C67.9 Malignant neoplasm of bladder, unspecified (principal) ==

== ENCOUNTER → 2024-10-09 | Outpatient (CLI) | payer MEDICARE, OTHER | LOC: M RAD 07:01 | PROVIDERS: ATTEND Internal Medicine Pulmonary Disease | DX: R91.8 Other nonspecific abnormal finding of lung field (principal); I25.10 Atherosclerotic heart disease of native coronary artery without angina pectoris; J47.9 Bronchiectasis, uncomplicated ==

== ENCOUNTER → 2025-03-25 | Outpatient (REF) | payer MEDICARE, OTHER | LOC: M SMT 13:06 | PROVIDERS: ATTEND Urology | DX: C67.9 Malignant neoplasm of bladder, unspecified (principal) ==

== ENCOUNTER → 2025-07-02 | Outpatient (CLI) | payer MEDICARE, OTHER | LOC: M PLAIMG 15:46 | PROVIDERS: ATTEND Internal Medicine Pulmonary Disease | DX: R05.9 Cough, unspecified (principal); J47.9 Bronchiectasis, uncomplicated; J84.9 Interstitial pulmonary disease, unspecified ==